=== PATIENT | male | born 1935 | race Caucasian/White ===

== ENCOUNTER → 2024-07-09 11:42 | Outpatient (REF) | payer OTHER, SELFPAY ==
[2024-07-09 12:43] LABS: % Basophils 0.8 % (0-2); % Eosinophils 1.6 % (0-6); % Immature Granulocytes 0.3 % (0-0.5); % Lymphocytes 21.8 % (20.5-51.1); % Monocytes 11.4 % (1.7-9.3); % Neutrophils 64.1 % (42.2-75.2); Absolute Basophils 0.1 10^3/uL (0-0.2); Absolute Eosinophils 0.1 10^3/uL (0-0.7); Absolute Lymphocytes 1.4 10^3/uL (1.2-3.4); Absolute Monocytes 0.7 10^3/uL (0.1-0.6); Absolute Neutrophils 4.1 10^3/uL (1.4-6.5); Hematocrit 44.7 % (39.0-52.0); Hemoglobin 15.2 g/dL (13.0-18.0); Mean Platelet Volume 9.6 fL (7.4-10.4); Nucleated Red Blood Cells % 0 % (-); Platelet Count 228 10^3/uL (130-400); Red Blood Cell Count 4.47 10^6/uL (4.70-6.10); Red Cell Dist. Width 14.6 % (11.5-14.5); White Blood Cell Count 6.4 10^3/uL (4.8-10.8)
[2024-07-09 14:34] LABS: ALT (SGPT) 32 U/L (0-50); AST (SGOT) 96 U/L (17-59); Albumin 3.9 g/dl (3.5-5.0); Alkaline Phosphatase 129 U/L (38-126); Blood Urea Nitrogen 24 mg/dl (9-20); Calcium 9.6 mg/dl (8.4-10.2); Carbon Dioxide 30 mmol/L (22-30); Chloride 100 mmol/L (98-107); Glucose 83 mg/dl (70-99); HDL Cholesterol 82 mg/dl; LDL Cholesterol, Calculated 49 mg/dl; Potassium 3.9 mmol/L (3.5-5.1); Sodium 140 mmol/L (135-145); Total Bilirubin 0.9 mg/dl (0.2-1.3); Total Cholesterol 151 mg/dl (50-199); Total Protein 6.4 g/dl (6.3-8.2); Triglyceride 101 mg/dl (10-149); Very Low Density Lipoprotein 20 mg/dl (0-30); eGFR > 60.00
[2024-07-09 14:38] LABS: Urine Albumin Trace (Neg - Trace); Urine Bilirubin Negative (Negative); Urine Character Clear (Clear); Urine Color Yellow; Urine Glucose Negative (Negative); Urine Ketone Negative (Negative); Urine Leukocyte Negative (Negative); Urine Nitrite Negative (Negative); Urine Occult Blood Negative (Negative); Urine Specific Gravity 1.015 (<1.030); Urine Urobilinogen Negative (Neg - 1+)
== END ==
LOC: REG 11:42
PROVIDERS: ATTENDING PHYSICIAN Internal Medicine
DX: I10 Essential (primary) hypertension (principal); E78.5 Hyperlipidemia, unspecified; C34.90 Malignant neoplasm of unspecified part of unspecified bronchus or lung
CPT/HCPCS: 36415; 80053; 80061; 81003; 85025

== ENCOUNTER 2025-01-08 22:27 | Inpatient (IN) | payer OTHER, SELFPAY ==
[2025-01-08 19:07] VITALS: BP 164/88
--- NOTE | 2025-01-08 19:24 | ED.MUSCINJ ---
HPI-Injury
General
Chief Complaint: Musculo-Skeletal Complaint
Source: patient
Exam Limitations: none
Time Seen by Provider: 01/08/25 19:15
History of Present Illness-Injury
Initial Injury comments:
89-year-old male presents complaining of left hip and thigh pain starting tonight at a restaurant. He went to sit on a chair and missed the chair and fell on his left side. He did not hit his head. He is on a full aspirin daily. No neck or back
pain. No arm pain. He notes significant pain with motion and bearing weight of the left leg. Brought here by EMS
Past History
Past History
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
ED Past Surgical History: None
Social History
Tobacco: Non-smoker
Alcohol: Daily (wine)
Personal:
Living: with family
Employment: Retired
Phy Exam
Physical Exam
Physical Exam:
General: Well-appearing male no acute respiratory distress
HEENT normocephalic atraumatic no scalp abrasion or hematoma
Heart: Regular rate and rhythm
Lungs: Clear no wheeze
Musculoskeletal exam: The patient's leg is slightly shortened and externally rotated. He is tender about the mid thigh as well as the hip. The left knee and ankle are nontender. The spine is nontender
Vascular: Palpable DP pulse left foot
Injury Course
Orders/Labs/Results
Orders:
Orders
01/08/25 19:22
CR Femur - Left Min 2 Vw Urgent
Comment:
Reason For Exam: fall, pain
CR Pelvis - 1 Or 2 Views Urgent
Reason For Exam: fall, pain
01/08/25 19:25
Morphine Sulfate 4 mg IV NOW STA
Ondansetron Injectable [Zofran] 4 mg IV NOW STA
01/08/25 19:35
Complete Blood Count/With Diff Urgent
Comprehensive Metabolic Panel Urgent
PTT Urgent
Prothrombin Time Urgent
01/08/25 20:26
diazePAM [Valium Injection] 2 mg IV NOW STA
Abnormal Lab Results
01/08/25
19:35
WBC 10.9 H 10^3/uL
(4.8-10.8)
MCH 31.4 H pg
(27.0-31.0)
RDW 15.3 H %
(11.5-14.5)
Abs Immat Gran (auto) 0.1 H 10^3/uL
(0-0.05)
Absolute Neuts (auto) 8.0 H 10^3/uL
(1.4-6.5)
Absolute Monos (auto) 0.9 H 10^3/uL
(0.1-0.6)
Lymphocytes % 15.4 L %
(20.5-51.1)
AST 78 H U/L
(17-59)
Alkaline Phosphatase 138 H U/L
(38-126)
01/08/25 19:35
01/08/25 19:35
MDM/Problems Addressed
Differential Diagnosis Includes:
Mechanical fall with left thigh and hip pain. Consider strain versus fracture versus dislocation. No evidence of head strike. He is on a full aspirin but no other anticoagulants. X-rays of the pelvis hip and femur pending
Will treat symptoms of pain.
*Critical Care Note
Total Time (30-74mins, 75-104mins- exclusive of procedures): Not Applicable
Update Note
Update Note:
X-ray demonstrates displaced left subcapital femur fracture. Notified orthopedics and hospitalist. Will admit to hospital for further evaluation.
ED Attending Note
-
Portions of this chart may have been created with voice recognition software.� Occasional wrong word or��sound alike� substitutions may have occurred due to the inherent limitations of voice recognition software.
Discharge Plan
Departure
Patient Disposition: Admit
Date of Disposition: 01/08/25
Time of Disposition: 20:28
Presentation/result/management discussed w/ accepting MD/DO: Hospitalist
Discharge Problem:
Closed subcapital fracture of left femur
Prescriptions:
No Action
gabapentin 100 MG capsule
200 mg PO HS Qty: 20 0RF
folic acid 0.4 MG tablet
0.8 mg PO DAILY
calcium carbonate [Calcium 600] 600 MG tablet
600 mg PO BID
Patient Comments:
cholecalciferol (vitamin D3) 1,000 UNIT capsule
1,000 unit PO BID
sennosides [senna] 1 TABLET tablet
2 tab PO HS Qty: 0 0RF
acetaminophen 325 MG tablet
650 mg PO Q4HPRN PRN (Reason: fever pain) Qty: 0 0RF
polyethylene glycol 3350 17 GRAMS powder in packet
17 grams PO DAILYPRN PRN (Reason: constipation) Qty: 0 0RF
atorvastatin 10 MG tablet
10 mg PO QPM Qty: 30 0RF
clopidogrel 75 MG tablet
75 mg PO DAILY Qty: 30 0RF
allopurinol 100 MG tablet
100 mg PO DAILY Qty: 30 0RF
diphenhydramine HCl [Banophen] 25 MG capsule
25 mg PO HS Qty: 0 0RF
docusate sodium 100 MG capsule
100 mg PO BID Qty: 0 0RF
metoprolol tartrate 25 MG tablet
25 mg PO BID Qty: 60 0RF
trazodone 50 MG tablet
25 mg PO HS Qty: 30 0RF
famotidine 20 MG tablet
20 mg PO HS Qty: 30 0RF
Referrals:
Ricky Herrera MD [Family Provider] -
Interventions
Interventions:
*Risk Screen - Suicide Last Done: 01/08/25 19:07
*General Assessment Last Done: 01/08/25 19:07
*Neglect/Abuse Screening Last Done: 01/08/25 19:07
*ED- Fall Risk Assessment Last Done: 01/08/25 19:07
*ED COVID-19 Vaccine History Last Done: 01/08/25 19:07
ED-Musculoskeletal Assessment Last Done: 01/08/25 19:16
Discharge Date and Time
Print Language: AMHARIC
[2025-01-08] MEDS: ZOFRAN 4 MG IV (19:31)
[2025-01-08] MEDS: MORPHINE SULFATE 4 MG IV (19:31)
[2025-01-08 19:49] LABS: % Basophils 0.7 % (0-2); % Eosinophils 1.7 % (0-6); % Immature Granulocytes 0.5 % (0-0.5); % Lymphocytes 15.4 % (20.5-51.1); % Monocytes 8.4 % (1.7-9.3); % Neutrophils 73.3 % (42.2-75.2); Absolute Basophils 0.1 10^3/uL (0-0.2); Absolute Eosinophils 0.2 10^3/uL (0-0.7); Absolute Immature Granulocytes 0.1 10^3/uL (0-0.05); Absolute Lymphocytes 1.7 10^3/uL (1.2-3.4); Absolute Monocytes 0.9 10^3/uL (0.1-0.6); Hematocrit 44.4 % (39.0-52.0); Hemoglobin 15.3 g/dL (13.0-18.0); Mean Corp Hgb Conc. 34.5 g/dL (33.0-37.0); Mean Corpuscular Hgb 31.4 pg (27.0-31.0); Mean Platelet Volume 9.6 fL (7.4-10.4); Nucleated Red Blood Cells % 0 % (-); Platelet Count 245 10^3/uL (130-400); Red Blood Cell Count 4.88 10^6/uL (4.70-6.10); Red Cell Dist. Width 15.3 % (11.5-14.5); White Blood Cell Count 10.9 10^3/uL (4.8-10.8)
[2025-01-08 20:00] LABS: PT 13.5 Sec (11.4-14.6)
[2025-01-08 20:01] LABS: APTT 28.2 Sec (23.4-35.0)
[2025-01-08 20:10] LABS: ALT (SGPT) 24 U/L (0-50); AST (SGOT) 78 U/L (17-59); Albumin 4.1 g/dl (3.5-5.0); Alkaline Phosphatase 138 U/L (38-126); Blood Urea Nitrogen 19 mg/dl (9-20); Calcium 9.8 mg/dl (8.4-10.2); Carbon Dioxide 29 mmol/L (22-30); Chloride 106 mmol/L (98-107); Estimated Creatinine Clearance 53 ml/min; Glucose 90 mg/dl (70-99); Potassium 4.3 mmol/L (3.5-5.1); Sodium 140 mmol/L (135-145); Total Protein 6.9 g/dl (6.3-8.2); eGFR > 60.00
--- NOTE | 2025-01-08 20:34 | HPS.HSE ---
Family Physician
-
Family Physician: Ricky Herrera
Chief Complaint
-
Fall left hip pain
History of Present Illness
89-year-old male who was out eating at a restaurant when he went to sit down he missed his chair falling on his left side injuring his hip and thigh. He came in the ER a shortened left leg. In the ER was noted to have a left femoral neck fracture.
He is complaining of left hip pain with left thigh spasm. He denies headache, fever, chills, chest pain, palpitations, shortness breath, cough, abdominal pain, nausea, vomiting, diarrhea, urinary symptoms. He states he started to have
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
day. He has past medical history of CVA 7 years ago with left hemiparesis, GERD, HTN, HLD, sleep apnea with BiPAP, gout, Etoh abuse 375 ml daily, mucous membrane pemphigoid mouth.
Medical History
Past Medical History
Past Medical History: Reports Other
Additional Past Medical History:
CVA 7 years ago with left hemiparesis
GERD
HTN
HLD
sleep apnea with BiPAP
gout
Etoh abuse 375 ml daily
Mucous membrane pemphigoid
Past Surgical History: Reports Other
Additional Past Surgical History:
Tonsillectomy
Social History
Tobacco: Non-smoker
Alcohol: Daily (375 ml bottle wine daily )
Drug: None
Personal:
Living: With Family ( Barbra)
Employment: Retired
Family History
Family History: Other (mother cva age 63, mom late 50's unsure , brother unsure)
Allergies / Home Medications
Allergies reflects when Allergies were last updated in [facility].
Home Medications with original date entered in [employer]
Allergy/Medication List:
Allergies
Allergy/AdvReac Type Severity Reaction Status Date / Time
No Known Allergies Allergy Verified 01/08/25 19:01
Home Medications
calcium carbonate (Calcium 600) 600 mg PO DAILY 10/31/13
cholecalciferol (vitamin D3) 25 mcg (1,000 unit) capsule 1,000 unit PO HS 10/31/13
folic acid 400 mcg tablet 0.8 mg PO DAILY 10/31/13
atorvastatin 10 mg tablet 10 mg PO QPM ##30 11/20/13
trazodone 50 mg tablet 25 mg (1/2 x 50 mg) PO HS #30 tabs 11/20/13
allopurinol 100 mg tablet 100 mg PO DAILY PRN gout 01/08/25
clotrimazole 10 mg fannie 10 mg PO DIRECTED 01/08/25
dexamethasone 0.5 mg/5 mL oral elixir 1 mg PO HS 01/08/25
diphenhydramine HCl 25 mg capsule (Banophen) 50 mg PO HS 01/08/25
doxycycline hyclate 100 mg PO DAILY 01/08/25
famotidine 20 mg tablet 20 mg PO HS PRN acid indigestion 01/08/25
Review of Systems
-
History Source: Patient and Family
A 12 point ROS was completed and negative except as noted: Yes
Constitutional: Denies Fever or Chills
EENT: Denies Tearing, Sore Throat or Runny Nose
Respiratory: Denies Cough or Trouble Breathing
Cardiac: Denies Chest Pain, Diaphoresis, Palpitations or Syncope
Abdomen/GI: Denies Abdominal Pain, Nausea, Vomiting, Diarrhea, Constipated, Bloody Stools or Black Stools
: Denies Dysuria, Frequency, Flank Pain, Incontinence, Difficulty Voiding, Urgency or Dark Urine
Musculoskeletal: Reports Joint Pain (left hip pain , lef thigh spasms )
Skin: Denies Itching or Rash
Neurological: Denies Dizzy, Headache or Weakness
Endocrine: Reports No Symptoms
Hematologic/Lymphatic: Reports No Symptoms
Psych: Reports Calm
Physical Exam
Vital Signs
Vital Signs
Temp Pulse Resp BP Pulse Ox
97.8 F 59 17 164/88 98
01/08/25 19:07 01/08/25 19:07 01/08/25 19:07 01/08/25 19:07 01/08/25 19:07
Physical Exam
General: Obese; No Fever, Chills or Slurred Speech
HEENT: NormoCephalic, Anicteric, Moist mucous membranes, PERRLA, Monserrate Conjunctivae, No Ptosis and Neck Nontender
Respiratory: Clear; No Wheezes, Rales or Rhonchi
Cardiac: S1/S2 and Regular Rhythm; No Murmur, Rub or Gallop
Breast: Deferred by me
GI: Soft, Non Tender, Non Distended, Normal Bowel Sounds and No Hepatosplenomegaly
Rectal: Deferred by Provider
Genito-urinary: Deferred by me
Musculoskeletal: No Clubbing, No Cyanosis, No Edema and Other (left hip pain , lef thigh spasms )
Skin: Warm and Dry; No Rash or Jaundice
Neuro: AO x 3 and Other (chronic left side 4/5 from stroke ); No Slurred Speech, Facial Droop or Tremors
Psych: Calm
Laboratory Results
-
01/08/25 19:35
01/08/25 19:35
Laboratory Results
PT 13.5 Sec (11.4-14.6) 01/08/25 19:35
INR 1.00 01/08/25 19:35
APTT 28.2 Sec (23.4-35.0) 01/08/25 19:35
Total Bilirubin 1.0 mg/dl (0.2-1.3) 01/08/25 19:35
AST 78 U/L (17-59) H 01/08/25 19:35
ALT 24 U/L (0-50) 01/08/25 19:35
Alkaline Phosphatase 138 U/L (38-126) H 01/08/25 19:35
Impression/Plan
-
Impression/plan:
Admit to MedSurg
#Mechanical fall with left femoral neck fracture
-N.p.o. after midnight 4 OR tomorrow
-Pain control
-Bowel regimen
-PT/OT/case management consult
#Hx CVA Ischemic 7 years ago left hemiparesis
uses walker
#Etoh abuse
Drink 375 ml wine daily
- cessation advised or to decrease amount to less then 10oz day
MSAS screen with protocol
Iv thiamine , Iv folate
Mucus membrane pemphigoid with mild exacerbation
- Continue clotrimazole troches up to 5 times a day, dexamethasone 1 mg - 10 mL at bedtime, doxycycline 100 mg daily was started on 12/14/2024
#HTN
164/88
Continue metoprolol tartrate 50 mg twice daily
#GERD
- Continue Nexium 40 mg daily or equivalent
#HLD
Continue Lipitor 10 mg at bedtime
#Sleep apnea
-Uses BiPAP pt to use own tmr
#Gout
- Allopurinol 100 mg daily
DVT prophylaxis
SCDs
#Full code
--- NOTE | 2025-01-08 20:44 | W.PN.UPDATE ---
Update Note
Progress Note Update
Patient seen in conjunction with RACQUET MAKER. I agree with the findings and physical. I concur with assessment and plan listed otherwise.
Briefly this is a 89-year-old male with past medical history significant for CVA, hypertension, BPH, hyperlipidemia, ANTIONE, hypertension who presents to the emergency department following a mechanical fall. Patient was trying to sit down while at a
restaurant where he missed the seat and landed on the floor. Developed severe pain and brought to the emergency department.
Was found to have a left hip fracture in the emergency department.
He he arrived with a blood pressure of 104/83 with a pulse of 59 and was satting 98% on room air. CBC was unremarkable with a white count of 10.9. Electrolytes were all within the normal range. PT/INR was normal. He has slight elevation in AST
to 78 and alk phos to 130.
The x-ray of the hip shows a left-sided subcapital displaced femoral fracture. There is shortening of the slightly rotated left leg on examination.
Assessment and plan
Femur fracture -left subcapital femoral fracture, displaced secondary to mechanical fall. Patient is not on any thinners. He is hemodynamically stable and in no distress is mostly due to pain.
- admit to med/surg
- non-weight bearing for now
- pain control and antiemetics
- npo after midnight
- b/s monitoring
- hold DVT PPX pending surgery in am
- surgery consulted and aware, OR tomorrow recommended.
- PTOT
- Case management
AST elevation - Patient aware, says chronically elevated and admitted to etoh intake daily.
- low risk withdrawal protocol
ANTIONE - on BIPAP, does not know home settings.
- can be off bipap tonight
- home device to be brought in am by spouse
Will continue oral statin, plavix, metoprolol and allopurinol
Code Status - Full code
[2025-01-08] MEDS: DILAUDID 0.5 MG IV (21:24)
[2025-01-08] MEDS: FLEXERIL 10 MG PO (21:24)
[2025-01-08 21:28] VITALS: BP 169/85
[2025-01-08 22:00] VITALS: BP 110/99
[2025-01-08 23:01] VITALS: BP 148/79
[2025-01-08 23:29] VITALS: BMI 29.0
[2025-01-08 23:30] VITALS: BP 151/83
[2025-01-08] MEDS: FLEXERIL 5 MG PO (23:48)
[2025-01-08] MEDS: THIAMINE INJECTION 200 MG IV (23:48)
[2025-01-08] MEDS: MYCELEX TROCHE 10 MG PO (23:48)
[2025-01-08] MEDS: ROXICODONE 5 MG PO (23:49)
[2025-01-08] MEDS: DECADRON 1 MG PO (23:49)
[2025-01-08] MEDS: BENADRYL 50 MG PO (23:51)
[2025-01-08] MEDS: VITAMIN D3 (cholecalciferol) 25 MCG PO (23:52)
[2025-01-09] VITALS (9 sets, daily range): BP systolic 126–162; BP diastolic 72–83
[2025-01-09 00:31] LABS: GGTP 31 U/L (15-73); Magnesium 1.9 mg/dl (1.6-2.3); Phosphorus 3.7 mg/dl (2.5-4.5)
[2025-01-09 00:32] LABS: Alcohol None Detected
[2025-01-09 00:36] LABS: B-Hydroxybutyrate 0.55 mmol/L (0.02-0.27)
[2025-01-09 00:37] LABS: INR 1.09; PT 14.4 Sec (11.4-14.6)
--- NOTE | 2025-01-09 04:42 | PTCARENOTE ---
pt npo first chg wipes completed- medicated with prn pain meds
--- NOTE | 2025-01-09 04:56 | CON.ORTHO ---
Consultation
-
Date/Time Consultation Requested: January 10
Date/Time Consultation Performed: January 10
Requesting Provider: ESTER Fraser
Performing Provider: Promise moreno Ghulam
Reason for Consultation: Left hip fracture
Consultation - Orthopedics
History
History of Present Illness:
89-year-old male with PMH of CVA 7 years ago with left hemiparesis (wears an AFO on this side), GERD, HTN, HLD, sleep apnea with BiPAP, gout, and Etoh abuse. He was out to eat at a restaurant when he went to sit down and missed his chair, falling on
his left side. Denies prodrome. No headstrike or LOC. He came in the ER with an inability to ambulate and a shortened left leg. In the ER, on xrays, he was noted to have a left femoral neck fracture. He was c/o let hip and thigh pain. Denies any
previous issues with the left hip prior to the fall. We have been requested in consultation with regards to his left hip fracture. He takes a daily 325mg ASA.
Past Medical History:
CVA 7 years ago with left hemiparesis (left sided AFO)
GERD
HTN
HLD
sleep apnea with BiPAP
gout
Etoh abuse 375 ml daily
Mucous membrane pemphigoid
Past Surgical History:
Tonsillectomy
Social History:
Tobacco: Non-smoker
Alcohol: Daily (375 ml bottle wine daily )
Drug: None
Personal:
Living: With Family ( Barbra)
Employment: Retired
Family History:
Mother cva age 63, mom late 50's unsure , brother unsure
Allergies / Home Medications
Allergy/AdvReac Type Severity Reaction Status Date / Time
No Known Allergies Allergy Verified 01/08/25 19:01
�Medication �Instructions �Recorded
calcium carbonate (Calcium 600) 600 mg PO DAILY 10/31/13
cholecalciferol (vitamin D3) 25 1,000 unit PO HS 10/31/13
mcg (1,000 unit) capsule
folic acid 400 mcg tablet 0.8 mg PO DAILY 10/31/13
atorvastatin 10 mg tablet 10 mg PO QPM ##30 11/20/13
trazodone 50 mg tablet 25 mg (1/2 x 50 mg) PO HS #30 tabs 11/20/13
allopurinol 100 mg tablet 100 mg PO DAILY PRN gout 01/08/25
clotrimazole 10 mg fannie 10 mg PO DIRECTED 01/08/25
dexamethasone 0.5 mg/5 mL oral 1 mg PO HS 01/08/25
elixir
diphenhydramine HCl 25 mg capsule 50 mg PO HS 01/08/25
(Banophen)
doxycycline hyclate 100 mg PO DAILY 01/08/25
famotidine 20 mg tablet 20 mg PO HS PRN acid indigestion 01/08/25
Vital Signs / Lab Results
Temp Pulse Resp BP Pulse Ox
97.8 F 63 17 151/83 91
01/08/25 23:30 01/08/25 23:30 01/08/25 23:30 01/08/25 23:30 01/08/25 23:30
Assessment / Plan
PE: Bedrest. Afeb. LLE skin intact. LLE short and ER. AFO used on LLE, but currently not on. Generalized pain left hip to palpation. + logroll LLE. Deferred ROM due to known fracture. Left knee nontender. Calf supple, nontender. DNVI LLE
Xrays: LEFT femoral neck fracture
Impression: ERIK
Plan: At length discussion with the patient bedside yields his understanding to the nature of his left hip fracture and the proposed treatment recommendations. Nonoperative and operative management were discussed, including the RBAs of each form of
management. After discussing all the risks with surgical fixation he has elected to proceed. Tentative plan for surgery will be this morning under the direction of Dr. Parmar by way of left hip hemiarthroplasty. We briefly discussed the postop and
rehab course, and will appreciate CM assistance with disposition. PT/OT will be crucial, as he does use an AFO LLE baseline. Surgical and blood consents have been signed by the patient and placed to his chart. Operative site has been marked as the
left hip. T&S requested. Patient is, and will remain NPO. Will discuss with attending hospitalist, but patient appears optimized for surgery. ABX and irrigation products OCTOR. Will proceed to the OR shortly.
[2025-01-09] MEDS: ROXICODONE 5 MG PO (05:02)
[2025-01-09] MEDS: FLEXERIL 5 MG PO ×2 (05:03→23:59)
[2025-01-09 05:18] LABS: Urine Albumin Negative (Neg - Trace); Urine Bilirubin Negative (Negative); Urine Character Clear (Clear); Urine Color Yellow; Urine Glucose Negative (Negative); Urine Ketone Negative (Negative); Urine Leukocyte Negative (Negative); Urine Nitrite Negative (Negative); Urine Occult Blood Negative (Negative); Urine Specific Gravity 1.025 (<1.030); Urine Urobilinogen Negative (Neg - 1+)
[2025-01-09 05:27] LABS: Amphetamines Negative (Negative); Barbiturates Negative (Negative); Benzodiazepines Negative (Negative); Buprenorphine Negative (Negative); Cocaine Negative (Negative); Marijuana Negative (Negative); Methadone Negative (Negative); Methamphetamines Negative (Negative); Opiates Positive (Negative); Phencyclidine Negative (Negative); Tricyclic Antidepressants Negative (Negative)
[2025-01-09 05:44] LABS: Fentanyl, Urine Negative (Negative)
[2025-01-09 06:15] LABS: % Basophils 0.7 % (0-2); % Eosinophils 1.4 % (0-6); % Immature Granulocytes 0.5 % (0-0.5); % Lymphocytes 9.4 % (20.5-51.1); % Monocytes 8.9 % (1.7-9.3); % Neutrophils 79.1 % (42.2-75.2); Absolute Basophils 0.1 10^3/uL (0-0.2); Absolute Eosinophils 0.1 10^3/uL (0-0.7); Absolute Lymphocytes 0.8 10^3/uL (1.2-3.4); Absolute Monocytes 0.8 10^3/uL (0.1-0.6); Hematocrit 41.4 % (39.0-52.0); Mean Corp Hgb Conc. 33.8 g/dL (33.0-37.0); Mean Corpuscular Volume 91.8 fL (80.0-94.0); Mean Platelet Volume 9.4 fL (7.4-10.4); Nucleated Red Blood Cells % 0 % (-); Platelet Count 210 10^3/uL (130-400); Red Blood Cell Count 4.51 10^6/uL (4.70-6.10); Red Cell Dist. Width 15.2 % (11.5-14.5); White Blood Cell Count 8.9 10^3/uL (4.8-10.8)
[2025-01-09 06:38] LABS: ALT (SGPT) 21 U/L (0-50); AST (SGOT) 66 U/L (17-59); Albumin 3.6 g/dl (3.5-5.0); Alkaline Phosphatase 123 U/L (38-126); Blood Urea Nitrogen 18 mg/dl (9-20); Calcium 9.2 mg/dl (8.4-10.2); Carbon Dioxide 28 mmol/L (22-30); Chloride 105 mmol/L (98-107); Estimated Creatinine Clearance 53 ml/min; Glucose 145 mg/dl (70-99); Sodium 138 mmol/L (135-145); Total Bilirubin 1.4 mg/dl (0.2-1.3); Total Protein 6.1 g/dl (6.3-8.2); eGFR > 60.00
[2025-01-09] MEDS: OSCAL CAL 500 500 MG PO (08:26)
[2025-01-09] MEDS: VIBRAMYCIN 100 MG PO (08:26)
[2025-01-09] MEDS: THIAMINE INJECTION 200 MG IV ×3 (08:27→23:52)
[2025-01-09] MEDS: MYCELEX TROCHE 10 MG PO ×4 (08:27→21:32)
[2025-01-09] MEDS: FOLVITE 1 MG PO (08:27)
[2025-01-09] MEDS: DILAUDID 0.5 MG IV (08:50)
--- NOTE | 2025-01-09 11:26 | PTCARENOTE ---
Telephone report given to [employer] APPRAISERARELY Gimenez @11:15; transport arrived and transported patient @11:26.
[2025-01-09] MEDS: MYCELEX TROCHE PO (11:30)
--- NOTE | 2025-01-09 13:26 | W.PN.HOSP.TC ---
Today's Communication/Plan
-
OR
Assessment / Plan
Assessment / Plan
89-year-old male with fall and left hip pain he was in a restaurant and when he sat down he missed the chair and fell on the left side injuring the hip and thigh.
Patient was seen earlier today. Late documentation. was at bedside
CVS: S1-S2 normal
Chest: CTA B/L
Abdomen: Soft, NT / Bowel sounds present
Extremities: No edema, normal pulses
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
1 skin lesion with pemphigoid in the back of the scalp. I could not find any oral lesions now.
Denies any chest pain or shortness of breath. Able to ambulate with assistance device.
#Mechanical fall with traumatic left femoral neck fracture
N.p.o. 4 OR
Pain management
# Slightly elevated AST secondary to alcohol
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
Unclear why he is not on antiplatelets
# Mucous membrane pemphigoid continue clotrimazole atrocious, Dexamethasone 1 mg/5 mL swish and spit TID, ( Pt not compliant per ) and doxycycline 100 mg daily
# Hyperlipidemia-continue statin
# Gout-continue allopurinol
# Sleep apnea-continue BiPAP
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
Need to cut back
MSAS protocol and thiamine
# GERD- Pepcid
# DVT prophylaxis-SCDs for now and per orthopedics after surgery
# Full code
Discussed with at bedside
Discussed with nursing
Part of this note was created using voice recognition system. Occasional wrong word or��sound alike� substitutions may have inadvertently occurred due to the inherent limitations of voice recognition software. If noted kindly bring it to my
attention for correction.
Anticipated Discharge: 24 - 48 hours
Subjective/Interval History
-
Date of Service: January 09, 2025
Objective Data
-
Labs:
Laboratory Results
01/09/25
06:03
WBC 8.9
Hgb 14.0
Hct 41.4
Plt Count 210
Sodium 138
Potassium 4.0
Chloride 105
Carbon Dioxide 28
BUN 18
Creatinine 0.9
Glucose 145 H
Calcium 9.2
Total Bilirubin 1.4 H
AST 66 H
ALT 21
Alkaline Phosphatase 123
Vital Signs:
Vital Signs
Temp Pulse Resp BP Pulse Ox
98.0 F 73 18 133/74 92
01/09/25 07:20 01/09/25 07:20 01/09/25 07:20 01/09/25 07:20 01/09/25 07:20
I&O
01/08/25 01/09/25 01/10/25
06:59 06:59 06:59
Intake Total 120 / 120
Output Total 450 / 450 20 / 20
Balance -330 / -330 -20 / -20
--- NOTE | 2025-01-09 13:35 | CM ---
Patient in bed sleeping. Initial assessment completed with who lives with her in a 1 story home with 1 step to enter. 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 Hx. CVA. L sided
weakness. Patient has a rollator, W/CH and 3 RW in the home. Uses a Bipap at HS. No in-home services. He does not drive. Does have a HC-POA. Was in the [employer]. PCP is [facility] or [facility] in [place]. PCP is Dr. Gilberto Herrera. Discharge POC:
Anticipate SNF. preference is [facility] or [facility] if acute is recommended. [facility] is preference. Referral not forwarded as yet.
[2025-01-09] MEDS: NORMOSOL-R/PLASMALYTE-A 1000 IV (15:29)
[2025-01-09] MEDS: DECADRON 1 MG PO ×2 (15:29→21:32)
[2025-01-09] MEDS: ASPIRIN 325 MG PO (17:37)
[2025-01-09] MEDS: LIPITOR 10 MG PO (17:37)
[2025-01-09] MEDS: ANCEF 5 IV (20:33)
[2025-01-09] MEDS: COLACE 100 MG PO (20:33)
--- NOTE | 2025-01-09 21:19 | RESPNOTE ---
pt declined use of his own cpap machine stating that he does without it from time to time. Offered ours since his was not here currently and he declined again.
[2025-01-09] MEDS: VITAMIN D3 (cholecalciferol) 25 MCG PO (21:32)
[2025-01-09] MEDS: BENADRYL 50 MG PO (21:32)
[2025-01-10 03:00] VITALS: BP 132/78
[2025-01-10 04:11] LABS: % Basophils 0.1 % (0-2); % Immature Granulocytes 0.4 % (0-0.5); % Lymphocytes 5.2 % (20.5-51.1); % Monocytes 5.6 % (1.7-9.3); % Neutrophils 88.7 % (42.2-75.2); Absolute Immature Granulocytes 0.1 10^3/uL (0-0.05); Absolute Lymphocytes 0.7 10^3/uL (1.2-3.4); Absolute Monocytes 0.8 10^3/uL (0.1-0.6); Absolute Neutrophils 11.8 10^3/uL (1.4-6.5); Hematocrit 42.1 % (39.0-52.0); Hemoglobin 14.5 g/dL (13.0-18.0); Mean Corp Hgb Conc. 34.4 g/dL (33.0-37.0); Mean Corpuscular Hgb 31.7 pg (27.0-31.0); Mean Corpuscular Volume 91.9 fL (80.0-94.0); Mean Platelet Volume 9.5 fL (7.4-10.4); Nucleated Red Blood Cells % 0 % (-); Platelet Count 212 10^3/uL (130-400); Red Blood Cell Count 4.58 10^6/uL (4.70-6.10); Red Cell Dist. Width 15.3 % (11.5-14.5); White Blood Cell Count 13.4 10^3/uL (4.8-10.8)
[2025-01-10] MEDS: ANCEF 5 IV (04:26)
[2025-01-10] MEDS: NORMOSOL-R/PLASMALYTE-A 1000 IV (04:29)
[2025-01-10 04:36] LABS: ALT (SGPT) 19 U/L (0-50); AST (SGOT) 82 U/L (17-59); Albumin 3.3 g/dl (3.5-5.0); Alkaline Phosphatase 95 U/L (38-126); Blood Urea Nitrogen 20 mg/dl (9-20); Calcium 9.1 mg/dl (8.4-10.2); Carbon Dioxide 26 mmol/L (22-30); Chloride 104 mmol/L (98-107); Estimated Creatinine Clearance 53 ml/min; Glucose 172 mg/dl (70-99); Magnesium 2.1 mg/dl (1.6-2.3); Potassium 4.6 mmol/L (3.5-5.1); Sodium 136 mmol/L (135-145); eGFR > 60.00
[2025-01-10 07:10] VITALS: BP 137/72
[2025-01-10] MEDS: OSCAL CAL 500 500 MG PO (08:54)
[2025-01-10] MEDS: VIBRAMYCIN 100 MG PO (08:54)
[2025-01-10] MEDS: ASPIRIN 325 MG PO (08:54)
[2025-01-10] MEDS: FOLVITE 1 MG PO (08:54)
[2025-01-10] MEDS: MYCELEX TROCHE 10 MG PO ×5 (08:54→21:15)
[2025-01-10] MEDS: THIAMINE INJECTION 200 MG IV ×3 (08:54→23:14)
[2025-01-10] MEDS: COLACE 100 MG PO ×2 (08:54→20:16)
[2025-01-10] MEDS: DECADRON 1 MG PO ×3 (08:55→21:16)
--- NOTE | 2025-01-10 09:27 | W.PN.ORTHO ---
Today's Communication / Plan
-
Continue Tx per the primary team, which is much appreciated
Dispo likely SNF, appreciate CM
Continue WBAT B/L LEs with AFO on LLE
PT/OT, THPs x 6 weeks
ASA 325mg daily x 4 weeks for DVT ppx
Dressing to remain today, ? change tomorrow, or per RN
Pain control, ice to hip
Camila out 2 weeks post-op (office or SNF)
Will follow
Assessment
.
Distal Motor Intact: Yes
Dressing:
Clean, dry and intact. Strikethrough contained. Will leave until tomorrow
Assessment:
POD#1 Left hip Nikko
Overall doing/feeling well
Calf soft, nontender
Plan
.
Surgery / Date: Left Hip Nikko/January 10 (Ghulam)
DVT Prophylaxis: Aspirin
Activity:
Out of bed. WBAT LLE with AFO
PT/OT, THPs x 6 weeks
Discharge Plan: SNF and Other
Discharge Information:
Appreciate CM
Subjective
.
.:
Patient resting comfortably enjoying breakfast. Little to no pain left hip
Vital Signs and Labs
.
Vital Signs and Labs:
Lab Results
01/10/25 03:38
01/10/25 03:38
Temp Pulse Resp BP Pulse Ox
98.0 F 85 18 137/72 93
01/10/25 07:10 01/10/25 07:10 01/10/25 07:10 01/10/25 07:10 01/10/25 07:10
PT 14.4 Sec (11.4-14.6) 01/09/25 00:07
INR 1.09 01/09/25 00:07
[2025-01-10] MEDS: SENOKOT 8.6 MG PO ×2 (10:19→20:16)
[2025-01-10] MEDS: PROTONIX 40 MG PO (10:19)
[2025-01-10] MEDS: FLOMAX 0.4 MG PO ×2 (10:19→21:15)
[2025-01-10 12:06] VITALS: BP 120/85; BP 145/85; PULSE 93; O2SAT 94
--- NOTE | 2025-01-10 12:20 | W.PN.HOSP.TC ---
Today's Communication/Plan
-
Post op care
WBAT
SNF placement
Assessment / Plan
Assessment / Plan
89-year-old male with fall and left hip pain he was in a restaurant and when he sat down he missed the chair and fell on the left side injuring the hip and thigh.
CVS: S1-S2 normal
Chest: CTA B/L
Abdomen: Soft, NT / Bowel sounds present
Extremities: Left hip site with Aquacel with bleeding
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
1 skin lesion with pemphigoid in the back of the scalp and neck left .
#Mechanical fall with traumatic left femoral neck fracture
Status post left hip hemiarthroplasty on 01/09/[address] Parmar
Weight bear as tolerated
PT OT
# Slightly elevated AST secondary to alcohol
# Leukocytosis-likely reactive
# Hyperglycemia-check hemoglobin A1c
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
Unclear why he is not on antiplatelets as outpatient. Currently on aspirin. Should be on 81 mg of aspirin once he completes the DVT prophylaxis dose
# Mucous membrane pemphigoid continue clotrimazole atrocious, Dexamethasone 1 mg/5 mL swish and spit TID ( Home dose) , ( Pt not compliant per ) and doxycycline 100 mg daily
# Hyperlipidemia-continue statin
# Gout-continue allopurinol
# Sleep apnea-continue BiPAP
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
Need to cut back
MSAS protocol and thiamine
# GERD- Pepcid, patient states that he also takes Prilosec as outpatient ordered
# DVT prophylaxis-SCDs, Aspirin
# Full code
Discussed with nursing at bedside
Part of this note was created using voice recognition system. Occasional wrong word or��sound alike� substitutions may have inadvertently occurred due to the inherent limitations of voice recognition software. If noted kindly bring it to my
attention for correction.
Anticipated Discharge: 24 - 48 hours
Subjective/Interval History
-
Date of Service: January 10, 2025
Objective Data
-
Labs:
Laboratory Results
01/10/25
03:38
WBC 13.4 H
Hgb 14.5
Hct 42.1
Plt Count 212
Sodium 136
Potassium 4.6
Chloride 104
Carbon Dioxide 26
BUN 20
Creatinine 0.9
Glucose 172 H
Calcium 9.1
Total Bilirubin 1.0
AST 82 H
ALT 19
Alkaline Phosphatase 95
Vital Signs:
Vital Signs
Temp Pulse Resp BP Pulse Ox
98.0 F 85 18 137/72 93
01/10/25 07:10 01/10/25 07:10 01/10/25 07:10 01/10/25 07:10 01/10/25 08:52
I&O
01/09/25 01/10/25 01/11/25
06:59 06:59 06:59
Intake Total 120 / 120 2295 / 2295 240 / 240
Output Total 450 / 450 1650 / 1650 200 / 200
Balance -330 / -330 645 / 645 40 / 40
[2025-01-10 12:25] LABS: Glycohemoglobin (HgbA1c) 5.8 % (4.0-5.6)
[2025-01-10 15:10] VITALS: BP 140/82
[2025-01-10 15:15] VITALS: BP 146/79; PULSE 88; O2SAT 100
[2025-01-10] MEDS: NORMOSOL-R/PLASMALYTE-A IV ×2 (15:33→17:16)
[2025-01-10] MEDS: FLUSH (NSS) 2 FLUSH IV (16:19)
[2025-01-10] MEDS: LIPITOR 10 MG PO (17:17)
[2025-01-10] MEDS: MAALOX 30 ML PO (20:16)
--- NOTE | 2025-01-10 20:48 | PTCARENOTE ---
pt reporting the Protonix did not provide relief from his heartburn, asking for Nexium, informed that she can bring in and give to nursing staff first for pharmacy to check for interactions. agreed to instructions. Pt given prn Maalox and
HOB raised for comfort.
[2025-01-10] MEDS: PEPCID 20 MG PO (21:15)
[2025-01-10] MEDS: BENADRYL 50 MG PO (21:15)
[2025-01-10] MEDS: VITAMIN D3 (cholecalciferol) 25 MCG PO (21:16)
[2025-01-10 23:41] VITALS: BP 110/78
[2025-01-11 06:14] LABS: % Basophils 0.1 % (0-2); % Eosinophils 0.3 % (0-6); % Immature Granulocytes 0.9 % (0-0.5); % Lymphocytes 9.9 % (20.5-51.1); % Monocytes 8.9 % (1.7-9.3); % Neutrophils 79.9 % (42.2-75.2); Absolute Immature Granulocytes 0.1 10^3/uL (0-0.05); Absolute Monocytes 0.9 10^3/uL (0.1-0.6); Absolute Neutrophils 8.2 10^3/uL (1.4-6.5); Hematocrit 33.5 % (39.0-52.0); Hemoglobin 11.6 g/dL (13.0-18.0); Mean Corp Hgb Conc. 34.6 g/dL (33.0-37.0); Mean Corpuscular Hgb 31.3 pg (27.0-31.0); Mean Corpuscular Volume 90.3 fL (80.0-94.0); Mean Platelet Volume 9.7 fL (7.4-10.4); Nucleated Red Blood Cells % 0 % (-); Platelet Count 181 10^3/uL (130-400); Red Blood Cell Count 3.71 10^6/uL (4.70-6.10); Red Cell Dist. Width 15.3 % (11.5-14.5); White Blood Cell Count 10.3 10^3/uL (4.8-10.8)
[2025-01-11 06:38] LABS: ALT (SGPT) 12 U/L (0-50); AST (SGOT) 68 U/L (17-59); Albumin 2.7 g/dl (3.5-5.0); Alkaline Phosphatase 90 U/L (38-126); Blood Urea Nitrogen 22 mg/dl (9-20); Calcium 8.6 mg/dl (8.4-10.2); Carbon Dioxide 28 mmol/L (22-30); Chloride 107 mmol/L (98-107); Estimated Creatinine Clearance 53 ml/min; Glucose 126 mg/dl (70-99); Potassium 3.7 mmol/L (3.5-5.1); Sodium 138 mmol/L (135-145); Total Bilirubin 0.8 mg/dl (0.2-1.3); Total Protein 4.9 g/dl (6.3-8.2); eGFR > 60.00
--- NOTE | 2025-01-11 07:32 | W.PN.ORTHO ---
Today's Communication / Plan
-
Continue Tx per the primary team, which is much appreciated
Dispo likely SNF, appreciate CM
Continue WBAT B/L LEs with AFO on LLE
PT/OT, THPs x 6 weeks
ASA 325mg daily x 4 weeks for DVT ppx
Dressing changed yesterday
Pain control, ice to hip
Camila out 2 weeks post-op (office or SNF)
Orthopaedics to sign off for now. Please reengage with any pertinent questions related to his care
Assessment
.
Distal Motor Intact: Yes
Dressing:
Clean, dry and intact. Mild strikethrough contained (dressing changed yesterday)
Assessment:
POD#2 Left hip hemiarthroplasty
Overall doing/feeling well
Calf soft, nontender
Plan
.
Surgery / Date: Left Hip Nikko/January 10 (Ghulam)
DVT Prophylaxis: Aspirin
Activity:
Out of bed. WBAT B/L LEs on walker
PT/OT, THPs x 6 weeks
Discharge Plan: SNF and Other
Discharge Information:
Appreciate CM
Subjective
.
.:
Patient resting comfortably this AM. Awaiting breakfast
Vital Signs and Labs
.
Vital Signs and Labs:
Lab Results
01/11/25 05:26
01/11/25 05:26
Temp Pulse Resp BP Pulse Ox
98.3 F 101 16 110/78 92
01/10/25 23:41 01/10/25 23:41 01/10/25 23:41 01/10/25 23:41 01/10/25 23:41
PT 14.4 Sec (11.4-14.6) 01/09/25 00:07
INR 1.09 01/09/25 00:07
[2025-01-11 07:38] VITALS: BP 132/72
[2025-01-11] MEDS: VIBRAMYCIN 100 MG PO (08:22)
[2025-01-11] MEDS: SENOKOT 8.6 MG PO ×2 (08:23→20:06)
[2025-01-11] MEDS: COLACE 100 MG PO ×2 (08:23→20:06)
[2025-01-11] MEDS: ASPIRIN 325 MG PO (08:23)
[2025-01-11] MEDS: OSCAL CAL 500 500 MG PO (08:23)
[2025-01-11] MEDS: FOLVITE 1 MG PO (08:23)
[2025-01-11] MEDS: THIAMINE INJECTION 200 MG IV ×2 (08:23→15:50)
[2025-01-11] MEDS: PROTONIX 40 MG PO (08:23)
[2025-01-11] MEDS: MYCELEX TROCHE 10 MG PO ×5 (08:23→21:34)
[2025-01-11] MEDS: DECADRON PO ×2 (08:23→09:51)
[2025-01-11] MEDS: MIRALAX 17 GRAMS PO (08:24)
--- NOTE | 2025-01-11 08:29 | W.PN.HOSP.TC ---
Today's Communication/Plan
-
consult Physiatry
Assessment / Plan
Assessment / Plan
89-year-old male with fall and left hip pain he was in a restaurant and when he sat down he missed the chair and fell on the left side injuring the hip and thigh.
#Mechanical fall with traumatic left femoral neck fracture
Status post left hip hemiarthroplasty on 01/09/[address] Parmar
Weight bear as tolerated
PT OT
Will consult Physiatry, ?[facility] candidate. PT recommends acute rehab
# Slightly elevated AST probably secondary to alcohol
# Leukocytosis-likely reactive
Better
# Hyperglycemia-hemoglobin A1c 5.8%
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
Unclear why he is not on antiplatelets as outpatient. Currently on aspirin. Should be on 81 mg of aspirin once he completes the DVT prophylaxis dose
# Mucous membrane pemphigoid continue clotrimazole atrocious, Dexamethasone 1 mg/5 mL swish and spit TID ( Home dose) , ( Pt not compliant per ) and doxycycline 100 mg daily
# Hyperlipidemia-continue statin
# Gout-continue allopurinol
# Sleep apnea-continue BiPAP
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
Need to cut back
MSAS protocol and thiamine
Has not demonstrated evidence of withdrawal
# GERD- Pepcid, patient states that he also takes Prilosec as outpatient ordered
# DVT prophylaxis-SCDs, Aspirin
# Full code
Discussed with nursing at bedside
Anticipated Discharge: 24 - 48 hours
Subjective/Interval History
-
Date of Service: January 11, 2025
Awake, alert
Objective Data
-
Labs:
Laboratory Results
01/11/25
05:26
WBC 10.3
Hgb 11.6 L
Hct 33.5 L
Plt Count 181
Sodium 138
Potassium 3.7
Chloride 107
Carbon Dioxide 28
BUN 22 H
Creatinine 0.9
Glucose 126 H
Calcium 8.6
Total Bilirubin 0.8
AST 68 H
ALT 12
Alkaline Phosphatase 90
Vital Signs:
Vital Signs
Temp Pulse Resp BP Pulse Ox
98.6 F 89 16 132/72 91
01/11/25 07:38 01/11/25 07:38 01/11/25 07:38 01/11/25 07:38 01/11/25 07:38
I&O
01/10/25 01/11/25 01/12/25
06:59 06:59 06:59
Intake Total 2295 / 2295 700 / 700
Output Total 1650 / 1650 1545 / 1545
Balance 645 / 645 -845 / -845
Review of Systems
-
History Source: Patient and Coordinated Provider (discussed with ARELY Arriaga)
Constitutional: Denies Fever
EENT: Reports No Symptoms Reported
Respiratory: Reports No Symptoms
Cardiac: Reports No Symptoms
Abdomen/GI: Reports No Symptoms
Musculoskeletal: Reports Joint Pain
Physical Exam
-
General: Well Developed, Well Nourished and No Apparent Distress
HEENT: Normocephalic and Atraumatic
Respiratory: Clear to Auscultation; Negative Wheezes, Rales or Rhonchi
Cardiac: Regular Rhythm and S1/S2
GI: Soft, Nontender, Nondistended and Normal Bowel Sounds
Musculoskeletal: No Clubbing, No Cyanosis, No Edema and Other (post op left hip)
Skin: Warm and Dry
Neuro: Awake, Alert and Oriented; Negative No Motor Deficits (left hemiparesis post CVA, gait not tested)
[2025-01-11 12:25] VITALS: BP 124/83; PULSE 108
[2025-01-11 12:28] VITALS: BP 124/83; PULSE 108; O2SAT 95
[2025-01-11] MEDS: NON-FORMULARY ITEM 40 MG PO (12:40)
--- NOTE | 2025-01-11 12:40 | CM ---
Addendum entered by LINSEY Burk 01/11/25 16:09:
updated on plan.
Original Note:
Spoke to Rn and patient. Patient agreed to referral to [facility] at for acute rehab. Referral sent in [facility]. [employer] is insurer.
[2025-01-11 15:00] VITALS: BP 128/75
[2025-01-11] MEDS: DECADRON 1 MG PO ×2 (15:50→21:34)
[2025-01-11] MEDS: FLEXERIL 5 MG PO ×2 (16:41→23:14)
[2025-01-11] MEDS: LIPITOR 10 MG PO (18:14)
--- NOTE | 2025-01-11 18:51 | RESPNOTE ---
Patient refused the hospital CPAP and will not be bringing his own in.
[2025-01-11] MEDS: VITAMIN D3 (cholecalciferol) 25 MCG PO (20:06)
[2025-01-11] MEDS: FLOMAX 0.4 MG PO (21:34)
[2025-01-11] MEDS: BENADRYL 50 MG PO (21:34)
--- NOTE | 2025-01-11 21:57 | PTCARENOTE ---
Pt reported that he told his not to bring in Bipap because he does not want to use it while he is in the hospital. RN educated pt on need for use of Bipap w hx of ANTIONE. Pt verbalized understanding but stated he does not need it. O2 sat was 96%
on RA. Assessment ongoing.
[2025-01-11 23:01] VITALS: BP 151/82
[2025-01-12 07:19] LABS: % Basophils 0.5 % (0-2); % Eosinophils 1.4 % (0-6); % Immature Granulocytes 0.5 % (0-0.5); % Lymphocytes 10.9 % (20.5-51.1); % Monocytes 10.7 % (1.7-9.3); Absolute Eosinophils 0.1 10^3/uL (0-0.7); Absolute Lymphocytes 0.9 10^3/uL (1.2-3.4); Absolute Monocytes 0.9 10^3/uL (0.1-0.6); Absolute Neutrophils 6.6 10^3/uL (1.4-6.5); Hematocrit 33.6 % (39.0-52.0); Hemoglobin 11.6 g/dL (13.0-18.0); Mean Corp Hgb Conc. 34.5 g/dL (33.0-37.0); Mean Corpuscular Hgb 31.4 pg (27.0-31.0); Mean Corpuscular Volume 90.8 fL (80.0-94.0); Mean Platelet Volume 9.6 fL (7.4-10.4); Nucleated Red Blood Cells % 0 % (-); Platelet Count 192 10^3/uL (130-400); Red Cell Dist. Width 15.1 % (11.5-14.5); White Blood Cell Count 8.6 10^3/uL (4.8-10.8)
[2025-01-12 07:23] VITALS: BP 138/75
[2025-01-12 08:29] LABS: ALT (SGPT) 18 U/L (0-50); AST (SGOT) 76 U/L (17-59); Albumin 2.7 g/dl (3.5-5.0); Alkaline Phosphatase 86 U/L (38-126); Blood Urea Nitrogen 21 mg/dl (9-20); Calcium 8.7 mg/dl (8.4-10.2); Carbon Dioxide 28 mmol/L (22-30); Chloride 108 mmol/L (98-107); Estimated Creatinine Clearance 53 ml/min; Glucose 123 mg/dl (70-99); Potassium 3.7 mmol/L (3.5-5.1); Sodium 139 mmol/L (135-145); Total Bilirubin 0.9 mg/dl (0.2-1.3); eGFR > 60.00
[2025-01-12] MEDS: ASPIRIN 325 MG PO (08:37)
[2025-01-12] MEDS: OSCAL CAL 500 500 MG PO (08:37)
[2025-01-12] MEDS: FOLVITE 1 MG PO (08:37)
[2025-01-12] MEDS: COLACE 100 MG PO ×2 (08:37→20:56)
[2025-01-12] MEDS: MYCELEX TROCHE 10 MG PO ×5 (08:37→21:03)
[2025-01-12] MEDS: VIBRAMYCIN 100 MG PO (08:37)
[2025-01-12] MEDS: VITAMIN B1 100 MG PO ×2 (08:37→20:56)
[2025-01-12] MEDS: SENOKOT 8.6 MG PO (08:37)
[2025-01-12] MEDS: DECADRON 1 MG PO ×3 (08:38→21:03)
[2025-01-12] MEDS: NON-FORMULARY ITEM 40 MG PO (08:38)
[2025-01-12] MEDS: MIRALAX 17 GRAMS PO (08:38)
[2025-01-12] MEDS: FLEXERIL 5 MG PO (08:52)
[2025-01-12 09:51] VITALS: BP 144/74; BP 157/89; PULSE 86; O2SAT 94
[2025-01-12 09:54] VITALS: BP 144/74; BP 157/89; PULSE 86; O2SAT 94
--- NOTE | 2025-01-12 11:17 | W.PN.HOSP.TC ---
Today's Communication/Plan
-
await input from Physiatry as to whether pt appropriate for [facility]
Assessment / Plan
Assessment / Plan
89-year-old male with fall and left hip pain he was in a restaurant and when he sat down he missed the chair and fell on the left side injuring the hip and thigh.
#Mechanical fall with traumatic left femoral neck fracture
Status post left hip hemiarthroplasty on 01/09/[address] Parmar
Weight bear as tolerated
PT OT
Will consult Physiatry, await input as to whether ?[facility]tson candidate. PT recommends acute rehab
# Slightly elevated AST probably secondary to alcohol
# Leukocytosis-likely reactive
Better
# Hyperglycemia-hemoglobin A1c 5.8%
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
Unclear why he is not on antiplatelets as outpatient. Currently on aspirin. Should be on 81 mg of aspirin once he completes the DVT prophylaxis dose
# Mucous membrane pemphigoid continue clotrimazole atrocious, Dexamethasone 1 mg/5 mL swish and spit TID ( Home dose) , ( Pt not compliant per ) and doxycycline 100 mg daily
# Hyperlipidemia-continue statin
# Gout-continue allopurinol
# Sleep apnea-continue BiPAP
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
Need to cut back
MSAS protocol and thiamine
Has not demonstrated evidence of withdrawal
# GERD- Pepcid, patient states that he also takes Nexium as outpatient, order placed
# DVT prophylaxis-SCDs, Aspirin
# Full code
Discussed with nursing at bedside
Anticipated Discharge: 24 - 48 hours
Subjective/Interval History
-
Date of Service: January 12, 2025
Pain not severe at rest
Objective Data
-
Labs:
Laboratory Results
01/12/25
06:40
WBC 8.6
Hgb 11.6 L
Hct 33.6 L
Plt Count 192
Sodium 139
Potassium 3.7
Chloride 108 H
Carbon Dioxide 28
BUN 21 H
Creatinine 0.9
Glucose 123 H
Calcium 8.7
Total Bilirubin 0.9
AST 76 H
ALT 18
Alkaline Phosphatase 86
Vital Signs:
Vital Signs
Temp Pulse Resp BP Pulse Ox
98.6 F 73 18 138/75 93
01/12/25 07:23 01/12/25 07:23 01/12/25 07:23 01/12/25 07:23 01/12/25 07:23
I&O
01/11/25 01/12/25 01/13/25
06:59 06:59 06:59
Intake Total 700 / 700 1440 / 1440
Output Total 1545 / 1545 1200 / 1200 300 / 300
Balance -845 / -845 240 / 240 -300 / -300
Review of Systems
-
History Source: Patient and Coordinated Provider (discussed with ARELY Goodwin)
Constitutional: Denies Fever
EENT: Reports No Symptoms Reported
Respiratory: Reports No Symptoms
Cardiac: Reports No Symptoms
Abdomen/GI: Reports No Symptoms
Musculoskeletal: Reports Joint Pain
Physical Exam
-
General: Well Developed, Well Nourished and No Apparent Distress
HEENT: Normocephalic and Atraumatic
Respiratory: Clear to Auscultation; Negative Wheezes, Rales or Rhonchi
Cardiac: Regular Rhythm and S1/S2
GI: Soft, Nontender, Nondistended and Normal Bowel Sounds
Musculoskeletal: No Clubbing, No Cyanosis, No Edema and Other (post op left hip)
Skin: Warm and Dry
Neuro: Awake, Alert and Oriented; Negative No Motor Deficits (left hemiparesis post CVA, gait not tested)
--- NOTE | 2025-01-12 12:40 | PN.CDI ---
CDI
- -
CDI:
Physician Documentation Request
Admit Date: 01/08/25 22:27
Dear Doctor Presley,
Clinical Indicators:
Patient admitted with left hip fracture; s/p Left hip hemiarthroplasty 01/09.
01/08 ED report, 'He went to sit on a chair and missed the chair and fell on his left side.'
01/09 Operative Report,'He did have osteoporosis and this was a pathologic fracture secondary to osteoporosis.'
01/12 PN, 'Mechanical fall with traumatic left femoral neck fracture'
Due to potentially conflicting documentation, please clarify the etiology the left hip fracture:
Multifactorial, due to trauma and osteoporosis
Pathologic due to osteoporosis only
Traumatic only
Other
Use of terms such as suspected, likely, concern for, or probable (associated with a specific diagnosis that is being evaluated, monitored, or treated as if it exists) are acceptable and can be coded in the inpatient setting, when documented at the
time of discharge.
Thank you,
FAUSTINA Britt RN
CDI Specialist
available via tiger text
Please use your independent medical judgment in providing your response.
--- NOTE | 2025-01-12 13:04 | PN.CDI ---
CDI
- -
CDI:
Physician Documentation Request
Admit Date: 01/08/25 22:27
Dear Doctor Presley,
Clinical Indicators:
Patient admitted with left hip fracture; s/p Left hip hemiarthroplasty 01/09.
01/09, 01/10 IVF: Normosol @ 100ml/hr
Hgb/Hct trend:
01/08/25 01/10/25 01/12/25
19:35 03:38 06:40
Hgb 15.3 14.5 11.6 L
Hct 44.4 42.1 33.6 L
Based on the above, could you clarify in the progress notes, the appropriate diagnosis, if significant, that supports the above abnormalities and additional evaluation, monitoring and/or treatment rendered:
Anemia, multifactorial due to acute blood loss and hemodilution
Anemia, due to acute blood loss
Anemia due to hemodilution only
Other, please specify
Use of terms such as suspected, likely, concern for, or probable (associated with a specific diagnosis that is being evaluated, monitored, or treated as if it exists) are acceptable and can be coded in the inpatient setting, when documented at the
time of discharge.
Thank you,
Nettie Cole RN
CDI Specialist
available via tiger text
Please use your independent medical judgment in providing your response.
--- NOTE | 2025-01-12 14:10 | CM ---
Addendum entered by Tess Kelly RN 01/12/25 14:43:
Justine faxed acute rehab authorization to [employer].
Original Note:
JUSTINE reviewed medical records. [facility] will most likely accept. JUSTINE is awaiting final acceptance. JUSTINE will further pend [employer] authorization once [facility] has accepted.
[2025-01-12] MEDS: MILK OF MAGNESIA 30 ML PO (14:39)
[2025-01-12 15:23] VITALS: BP 134/80
[2025-01-12] MEDS: LIPITOR 10 MG PO (17:26)
[2025-01-12] MEDS: SENOKOT PO (20:56)
[2025-01-12] MEDS: VITAMIN D3 (cholecalciferol) 25 MCG PO (21:03)
[2025-01-12] MEDS: BENADRYL 50 MG PO (21:03)
[2025-01-12] MEDS: FLOMAX 0.4 MG PO (21:03)
[2025-01-12 23:00] VITALS: BP 164/80
[2025-01-13 07:50] VITALS: BP 142/71
--- NOTE | 2025-01-13 08:35 | CM ---
Addendum entered by Tess Kelly RN 01/13/25 16:54:
CM updated patient's daughter. CM discussed possible SNF options. Daughter stated that if [employer] declines, then they would be agreeable to SNF at [facility] or [facility].
CM will continue to follow for needs.
Addendum entered by Tess Kelly RN 01/13/25 15:58:
JUSTINE called [employer] precertification to confirm authorization reference number. CM resent clinical.
Reference Number
[id number]
Original Note:
JUSTINE emailed [employer] RN reviewer with request for update on acute rehab authorization.
[2025-01-13] MEDS: VIBRAMYCIN 100 MG PO (08:41)
[2025-01-13] MEDS: MYCELEX TROCHE 10 MG PO ×5 (08:41→21:11)
[2025-01-13] MEDS: DECADRON 1 MG PO ×3 (08:42→21:11)
[2025-01-13] MEDS: VITAMIN B1 100 MG PO ×2 (08:42→21:10)
[2025-01-13] MEDS: FOLVITE 1 MG PO (08:42)
[2025-01-13] MEDS: MIRALAX 17 GRAMS PO (08:42)
[2025-01-13] MEDS: COLACE 100 MG PO ×2 (08:42→21:10)
[2025-01-13] MEDS: ASPIRIN 325 MG PO (08:42)
[2025-01-13] MEDS: NON-FORMULARY ITEM 40 MG PO (08:43)
[2025-01-13] MEDS: OSCAL CAL 500 500 MG PO (08:43)
[2025-01-13] MEDS: SENOKOT 8.6 MG PO ×2 (08:43)
[2025-01-13 11:53] VITALS: BP 125/74; BP 151/80; PULSE 80; O2SAT 97
--- NOTE | 2025-01-13 12:06 | CON.MD ---
Consultation - Medical
-
Date of Consult:�01/13/2025
Referring Provider:�Dr. Bryson Sherwood
Chief Complaint:�Left femur fracture
�
History of Present Illness:�89-year-old male with PMH (as below) presented to [facility] on 01/08/2025 with left hip pain after falling while missing a chair while he was attempting to sit. He had a shortened left leg and found to have a
left femoral neck fracture in the emergency department. [place] to be a pathologic fracture secondary to osteoporosis. On 01/09/2025 he had a left hip hemiarthroplasty by Dr. Musa Parmar. Weightbearing as tolerated bilateral lower extremities with
AFO on the left lower extremity. Left total hip precautions for 6 weeks. Noted with leukocytosis thought reactive. Noted with postoperative anemia stable 11.6.
�
Past Medical History:�CVA with left hemiparesis, GERD, HTN, HLD, ANTIONE on BiPAP, gout, alcohol abuse, mucous membrane pemphigoid of the mouth
Procedure History:�Tonsillectomy
Family History:�mother cva age 63
�
Social History:�
Functional Level Premorbidly:�Independent with all activities�
Functional Level Currently:�Min assist transfer, min assist ambulating 8 feet x 1 and then 20 feet x 2 with rolling walker. Mod assist lower extremity self-care, min assist bed mobility. PT and OT recommending acute inpatient rehabilitation.
�
Tobacco:�Denies�
Alcohol:�Daily 375 mL bottle wine
Drug use:�Denies�
�
Lives with:� Moriah
24-hour assistance available:�Yes
Number of floors:�1
# steps to enter:�1
Driving:�Has license but decided not to drive anymore after stroke
Occupation:�Retired
�
�
Allergies:�
Allergy/AdvReac Type Severity Reaction Status Date / Time
No Known Allergies Allergy Verified 01/08/25 19:01
�
Review of Systems:�
Constitutional: (x) Normal _
Eye: (x) Normal _
Ear/Nose/Throat: (x) Normal _
Respiratory: (x) Normal _
Cardiovascular: (x) Normal _
Gastrointestinal: (x) Normal _
Genitourinary: (x) Normal _
Musculoskeletal: (x) abNormal _left hip pain better since surgery
Integumentary: (x) Normal _
Neurologic: (x) abNormal _left-sided weakness as a result of prior stroke
Psychiatric: (x) Normal _
Endocrine: (x) Normal _
Hematologic/Lymphatic: (x) Normal _
Allergic/Immunologic: (x) Normal _
�
Medications:�
Active Current Visit Medication List
Category Date Time Status
0.9% Sodium Chloride [Nss (Preservative Free)] Med 01/08/25 23:24 Active
See Protocol IV PRN PRN
Acetaminophen [Tylenol] Med 01/08/25 23:24 Active
650 mg PO Q4HPRN PRN
Allopurinol [Zyloprim] Med 01/08/25 23:24 Active
100 mg PO DAILYPRN PRN
Aspirin Med 01/09/25 18:00 Active
325 mg PO DAILY
Atorvastatin [Lipitor] Med 01/09/25 18:00 Active
10 mg PO QPM
Bisacodyl [Dulcolax] Med 01/08/25 23:24 Active
10 mg RECTAL [id number] PRN
Calcium Carbonate [Oscal Ar 500] Med 01/09/25 08:00 Active
500 mg PO DAILY
Cholecalciferol (Vitamin D3) [VITAMIN D3 ( Med 01/08/25 23:24 Active
cholecalciferol)]
25 mcg PO HS
Clotrimazole [Mycelex Fannie] Med 01/08/25 23:24 Active
10 mg PO 5/D
Cyclobenzaprine HCl [Flexeril] Med 01/08/25 23:24 Active
5 mg PO TIDPRN PRN
Dexamethasone [Decadron] Med 01/09/25 16:00 Active
1 mg PO TID
Diphenhydramine [Benadryl] Med 01/08/25 23:24 Active
50 mg PO HS
Docusate Sodium [Colace] Med 01/09/25 20:00 Active
100 mg PO BID
Doxycycline [Vibramycin] Med 01/09/25 08:00 Active
100 mg PO DAILY
FOLic ACID [Folvite] Med 01/09/25 08:00 Active
1 mg PO DAILY
FOLic ACID [Folvite] 1 mg Med 01/08/25 23:24 Active
0.9% Sodium Chloride 50 ml [Nss] 50 ml
IV DAILYPRN
Flush (0.9% Sodium Chloride) [Flush (Nss)] Med 01/08/25 22:00 Active
See Dose Instructions IV PER PROTOCOL
HYDROmorphone [Dilaudid] Med 01/08/25 23:24 Active
0.5 mg IV Q4HPRN PRN
Lorazepam [Ativan] Med 01/08/25 23:24 Active
1 mg IV Q1HPRN PRN
Lorazepam [Ativan] Med 01/08/25 23:24 Active
1 mg PO Q2HPRN PRN
Lorazepam [Ativan] Med 01/08/25 23:24 Active
2 mg IV Q1HPRN PRN
Mag Hydrox/Al Hydrox/Simeth [Maalox] Med 01/09/25 11:30 Active
30 ml PO Q4HPRN PRN
Magnesium Hydroxide [Milk of Magnesia] Med 01/12/25 14:21 Active
30 ml PO QIDPRN PRN
Nexium Med 01/11/25 12:00 Active
See Dose Instructions PO DAILY
Ondansetron Injectable [Zofran] Med 01/08/25 23:24 Active
4 mg IV Q6HPRN PRN
Oxycodone [Roxicodone] Med 01/08/25 23:24 Active
5 mg PO Q4HPRN PRN
Polyethylene Glycol Powder [Miralax] Med 01/10/25 10:15 Active
17 grams PO DAILY
Sennosides [Senokot] Med 01/10/25 11:00 Active
8.6 mg PO BID
Tamsulosin [Flomax] Med 01/10/25 22:00 Active
0.4 mg PO HS
Thiamine HCl [Vitamin B1] Med 01/12/25 08:00 Active
100 mg PO BID
�
Vitals:�
Temp Pulse Resp BP Pulse Ox
98.2 F 76 18 142/71 94
01/13/25 07:50 01/13/25 07:50 01/13/25 07:50 01/13/25 07:50 01/13/25 08:40
Height 5 ft 7 in
Actual Weight 83.824 kg
Body Mass Index (BMI) 29.0
�
Physical Exam:�
General Appearance/Observation: Well-developed, well-nourished male in no apparent distress.�
Pain/Comfort Assessment: Mild left hip
Mood/Affect: Appropriate�
�
Integumentary/Operative Site:�Left hip Aquacel with moderate serosanguineous drainage
�
Eyes: Conjunctiva/Lids: normal��� Pupils: pupils equal round and reactive to light and Accommodation
Ears/Nose/Throat: oral mucosa moist, throat clear.������������ Lips/Teeth/Gums: normal
Cardiovascular: Heart: regular, no murmur�
Pulses: dorsalis pedis 2+ bilaterally�
Respiratory: Respiratory Effort/Chest Expansion: normal������ Auscultation: Clear to auscultation bilaterally
Gastrointestinal: abdomen not tender, no distension, normal abdominal bowel sounds
Genitourinary: No Damian�
Extremities:�Edema: Mild left lower extremity�cyanosis: Has slightly cooler left upper extremity than the right which she does eat with slight to bluish-red hue. Trophic�changes: None
- Has left double metal upright AFO.
Neurology Exam:
Orientation: Alert, Oriented to self, Time, Place�
Memory: Intact for recent medical concerns
Comprehension: Intact
Two step command: Intact
Cranial Nerves:
�� CNII:�Pupillary light reflex: Intact���Visual Field: Intact
�� CN III, IV, : Extraocular muscles: Intact�
�� CN V:�Facial Sensation�at�Forehead: Intact,�Maxilla: Intact,�Mandible: Intact
�� CN VII:�Facial movement: Symmetric
�� CN VIII:�Hearing: Normal
�� CN IX/X:�Speech & swallow: Normal,�Position of Uvula: Midline
�� CN XI:�Shoulder shrug: Symmetric
�� CN XII:�Tongue protrusion: Midline
Sensory:
�� Light touch: Intact in bilateral upper and lower extremities
�
Reflexes:
�� Babinski: Down going bilaterally
�� Clonus: None
�� Brianne: Negative bilaterally�
Cerebellar: Dysmetria/Ataxia: None�
Musculoskeletal:Motor: (Manual muscle scale 0-5)�
Muscle SA EF WE EE FF FA HF KE DF EHL PF
Right� 5 5 5 5 5 5 5 5 5 5
Left 5 5 5 4+ 5 5 2 2 2+ 3
�
Tone: Normal in all extremities�
Range of Motion: Passively within normal limits in all extremities�
�
Lab Results
Laboratory Data
01/12/25 06:40
01/12/25 06:40
PT 14.4 Sec (11.4-14.6) 01/09/25 00:07
INR 1.09 01/09/25 00:07
APTT 28.2 Sec (23.4-35.0) 01/08/25 19:35
Total Bilirubin 0.9 mg/dl (0.2-1.3) 01/12/25 06:40
GGT 31 U/L (15-73) 01/09/25 00:07
AST 76 U/L (17-59) H 01/12/25 06:40
ALT 18 U/L (0-50) 01/12/25 06:40
Alkaline Phosphatase 86 U/L (38-126) 01/12/25 06:40
Total Protein 5.0 g/dl (6.3-8.2) L 01/12/25 06:40
Albumin 2.7 g/dl (3.5-5.0) L 01/12/25 06:40
�
Diagnostic Results:�as per HPI�
�
Assessment
89 y/o M PMH (CVA with left hemiparesis, GERD, HTN, HLD, ANTIONE on BiPAP, gout, alcohol abuse, mucous membrane pemphigoid of the mouth) with 01/08/2025 left femoral neck fracture i s/p 01/09/2025left hip hemiarthroplasty by Dr. Musa Parmar.
Weightbearing as tolerated bilateral lower extremities with AFO on the left lower extremity. Left total hip precautions for 6 weeks. Noted with leukocytosis thought reactive and postoperative anemia resulting in ADL and ambulatory dysfunction.
Plan�
PM&R�PT/OT to increase independence with ADLs, improve balance, coordination, endurance, strength, mobility, community reintegration, decreased burden of care on others and family education.�
�
Left hip fracture: Monitor incision, pain control, hip precautions/incision care per orthopedics,�may shower, dressings can be removed postop day 7, polly removed postop day 14.
CVA with left hemiparesis history: Secondary prophylaxis with aspirin, statin, and blood pressure control.�
Left hemiparesis: Has left ankle-foot orthosis
-Maintain full range of motion.�
-Flexeril for spasms and Tylenol or oxycodone for pain
- Has spasms in the left leg during the day but worse at night preventing him from sleeping. He tries taking Benadryl at home and during the day but it makes him to doubt drowsy during the day.
--Suggest baclofen starting at 5 mg at night and increasing to 10 mg at night if tolerated and needed. Suggest stopping Flexeril. Would avoid taking Benadryl for sleep. Side effect of drowsiness might also benefit with baclofen. Could also
consider low-dose trazodone.
HTN: Currently not on medication, monitor for low blood pressure on Flomax.
HLD: Statin�
Gout: Allopurinol as needed
ANTIONE: BiPAP use.�
Postoperative anemia: Continue to monitor.�
Osteoporosis: Calcium with vitamin D
Oral mucous membrane pemphigoid: Clotrimazole fannie, doxycycline
Alcohol use history: Had Ativan protocol ordered. Folic acid and thiamine supplementation.
Psych: Monitor mood, medications as needed.�
Skin: monitor for pressure sores/rashes/lesions.�
Bowel: MiraLAX, Colace and Senna, PRN bisacodyl.�
Bladder: BPH on tamsulosin 0.4 mg at bedtime time void, PVRs, PRN straight cath.�
GI Prophylaxis: Esomeprazole
DVT Prophylaxis: Mechanical and full dose aspirin
Pulmonary: Incentive spirometry�
Safety: Continue to reinforce assistance with all transfers.�
Code Status:� Full code
Dispo�(date/plan/equipment needs): Home with family care.� Social history reviewed.�
Functional and Medical Goals:�Modified Independent with ADL�s, ambulation, transfers�
Discharge Destination:�Acute inpatient rehabilitation�
Summary of recommendations:
Left hip fracture: Monitor incision, pain control, hip precautions/incision care per orthopedics,�may shower, dressings can be removed postop day 7, polly removed postop day 14.
Left hemiparesis: Has left ankle-foot orthosis
- Has spasms in the left leg during the day but worse at night preventing him from sleeping. He tries taking Benadryl at home and during the day but it makes him to doubt drowsy during the day.
--Suggest baclofen starting at 5 mg at night and increasing to 10 mg at night if tolerated and needed. Suggest stopping Flexeril. Would avoid taking Benadryl for sleep. Side effect of drowsiness might also benefit with baclofen. Could also
consider low-dose trazodone for sleep.
�
Thank you for allowing me to care for your patient. Please contact me with any questions or concerns.
[2025-01-13 15:30] VITALS: BP 135/73
[2025-01-13 15:53] VITALS: BP 128/70; PULSE 87
--- NOTE | 2025-01-13 15:56 | DOWNTIME ---
There was a appsplit Client [employer] Downtime on 01/13/2025 from 1230 to 01/13/2025 at 1550. Downtime documentation of patient's care, including medication administrations, has been reconciled in the electronic record per guidelines. Refer to the
patient's paper chart under the miscellaneous tab to see printed paper medication records and downtime forms.
--- NOTE | 2025-01-13 16:35 | W.PN.HOSP.TC ---
Today's Communication/Plan
-
await insurance prior auth
recheck labs in AM
Assessment / Plan
Assessment / Plan
89-year-old male with fall and left hip pain he was in a restaurant and when he sat down he missed the chair and fell on the left side injuring the hip and thigh.
#Mechanical fall with traumatic left femoral neck fracture
Status post left hip hemiarthroplasty on 01/09/[address] Parmar
Weight bear as tolerated
PT OT
Will consult Physiatry, await input as to whether ?Marcelo candidate. PT recommends acute rehab, [facility] accepted to rehab, just checked with ARELY Quiñonez and have not yet received prior auth from [employer], insurance
# Slightly elevated AST probably secondary to alcohol
Acute Fracture was Multifactorial, due to trauma and osteoporosis
Acute Anemia, due to acute blood loss from trauma and surgical intervention
# Leukocytosis-likely reactive
Better
# Hyperglycemia-hemoglobin A1c 5.8%
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
Unclear why he is not on antiplatelets as outpatient. Currently on aspirin. Should be on 81 mg of aspirin once he completes the DVT prophylaxis dose
# Mucous membrane pemphigoid continue clotrimazole atrocious, Dexamethasone 1 mg/5 mL swish and spit TID ( Home dose) , ( Pt not compliant per ) and doxycycline 100 mg daily
# Hyperlipidemia-continue statin
# Gout-continue allopurinol
# Sleep apnea-continue BiPAP
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
Need to cut back
MSAS protocol and thiamine
Has not demonstrated evidence of withdrawal
# GERD- Pepcid, patient states that he also takes Nexium as outpatient, order placed
# DVT prophylaxis-SCDs, Aspirin
# Full code
Discussed with nursing at bedside
Met with in [place] and updated
Anticipated Discharge: Within 24 hours
Subjective/Interval History
-
Date of Service: January 13, 2025
Anxiously awaiting transfer to [facility]
Objective Data
-
Vital Signs:
Vital Signs
Temp Pulse Resp BP Pulse Ox
98.2 F 76 18 142/71 94
01/13/25 07:50 01/13/25 07:50 01/13/25 07:50 01/13/25 07:50 01/13/25 08:40
I&O
01/12/25 01/13/25 01/14/25
06:59 06:59 06:59
Intake Total 1440 / 1440 1080 / 1080 240 / 240
Output Total 1200 / 1200 1300 / 1300 220 / 220
Balance 240 / 240 -220 / -220 / 20
Review of Systems
-
History Source: Patient and Coordinated Provider (discussed with ARELY Quiñonze)
Constitutional: Denies Fever
EENT: Reports No Symptoms Reported
Respiratory: Reports No Symptoms
Cardiac: Reports No Symptoms
Abdomen/GI: Reports No Symptoms
Musculoskeletal: Reports Joint Pain
Physical Exam
-
General: Well Developed, Well Nourished and No Apparent Distress
HEENT: Normocephalic and Atraumatic
Respiratory: Clear to Auscultation; Negative Wheezes, Rales or Rhonchi
Cardiac: Regular Rhythm and S1/S2
GI: Soft, Nontender, Nondistended and Normal Bowel Sounds
Musculoskeletal: No Clubbing, No Cyanosis, No Edema and Other (post op left hip)
Skin: Warm and Dry
Neuro: Awake, Alert and Oriented; Negative No Motor Deficits (left hemiparesis post CVA, gait not tested)
[2025-01-13] MEDS: LIPITOR 10 MG PO (17:55)
[2025-01-13] MEDS: BENADRYL 50 MG PO (21:11)
[2025-01-13] MEDS: FLOMAX 0.4 MG PO (21:11)
[2025-01-13] MEDS: VITAMIN D3 (cholecalciferol) 25 MCG PO (21:11)
[2025-01-13 23:15] VITALS: BP 130/75
[2025-01-13] MEDS: FLEXERIL 5 MG PO (23:37)
[2025-01-14 07:09] VITALS: BP 172/84
[2025-01-14 08:32] LABS: % Basophils 0.4 % (0-2); % Eosinophils 2.1 % (0-6); % Immature Granulocytes 0.4 % (0-0.5); % Lymphocytes 18.4 % (20.5-51.1); % Monocytes 12.2 % (1.7-9.3); % Neutrophils 66.5 % (42.2-75.2); Absolute Eosinophils 0.2 10^3/uL (0-0.7); Absolute Lymphocytes 1.3 10^3/uL (1.2-3.4); Absolute Monocytes 0.9 10^3/uL (0.1-0.6); Absolute Neutrophils 4.8 10^3/uL (1.4-6.5); Hematocrit 35.1 % (39.0-52.0); Hemoglobin 12.3 g/dL (13.0-18.0); Mean Corpuscular Hgb 31.1 pg (27.0-31.0); Mean Corpuscular Volume 88.6 fL (80.0-94.0); Mean Platelet Volume 9.6 fL (7.4-10.4); Nucleated Red Blood Cells % 0 % (-); Platelet Count 213 10^3/uL (130-400); Red Blood Cell Count 3.96 10^6/uL (4.70-6.10); Red Cell Dist. Width 14.9 % (11.5-14.5); White Blood Cell Count 7.2 10^3/uL (4.8-10.8)
--- NOTE | 2025-01-14 09:25 | CM ---
Addendum entered by Jessy Shea 01/14/25 15:46:
CM left a voice mail; instructed her to bring BiPap to the hospital tomorrow to go with patient to [facility]; or deliver it to [facility] directly
Attending notified to include BiPAP in DC orders
Addendum entered by Jessygita Shea 01/14/25 12:46:
IMM benefit explained to patient and at bedside; form signed @ 1240
Addendum entered by Jessy Shea 01/14/25 12:33:
[facility]
Report # [id number]

Addendum entered by Jessy [facility] 01/14/25 11:40:
Attending notified of Authorization approval and will discharge patient tomorrow
Addendum entered by Jessy [facility] 01/14/25 11:34:
CM spoke with patient's , informed her that authorization for acute rehab denied
agreeable with discharge to SNF; 1st site preference is [facility]; facility will have a bed tomorrow
Referral for [facility] sent via [employer]; authorization approved; [facility] notified of approval
Authorization Certification # [id number]
Start 01-15; last covered day and review 01/21/2025
[employer] fax # [phone]
Addendum entered by Jessy Shea 01/14/25 10:45:
Per Tess FLETCHER [employer] denied Auth for Acute Rehab; Attending notified
SNF referrals accepted by [facility] pending bed availability when stable for discharge; and Auth approval
Will discuss with Attending and follow up with patient/family
Original Note:
JUSTINE called Sandeep for insurance authorization status
Sandeep reported that clinical information was received and in review; no decision at this time
Plan: discharge to acute rehab facility pending authorization approval
[2025-01-14] MEDS: COLACE 100 MG PO ×2 (09:43→20:05)
[2025-01-14] MEDS: ASPIRIN 325 MG PO (09:43)
[2025-01-14] MEDS: DECADRON 1 MG PO ×3 (09:43→22:24)
[2025-01-14] MEDS: FOLVITE 1 MG PO (09:44)
[2025-01-14] MEDS: VIBRAMYCIN 100 MG PO (09:44)
[2025-01-14] MEDS: SENOKOT 8.6 MG PO (09:44)
[2025-01-14] MEDS: NON-FORMULARY ITEM 40 MG PO (09:44)
[2025-01-14] MEDS: VITAMIN B1 100 MG PO ×2 (09:44→20:06)
[2025-01-14] MEDS: MIRALAX 17 GRAMS PO (09:44)
[2025-01-14] MEDS: OSCAL CAL 500 500 MG PO (09:44)
[2025-01-14] MEDS: MYCELEX TROCHE 10 MG PO ×3 (09:44→22:24)
[2025-01-14] MEDS: FLEXERIL 5 MG PO (09:45)
[2025-01-14 09:48] LABS: ALT (SGPT) 32 U/L (0-50); AST (SGOT) 106 U/L (17-59); Alkaline Phosphatase 92 U/L (38-126); Blood Urea Nitrogen 24 mg/dl (9-20); Calcium 8.6 mg/dl (8.4-10.2); Carbon Dioxide 27 mmol/L (22-30); Chloride 109 mmol/L (98-107); Estimated Creatinine Clearance 60 ml/min; Glucose 95 mg/dl (70-99); Potassium 4.1 mmol/L (3.5-5.1); Sodium 138 mmol/L (135-145); Total Bilirubin 1.2 mg/dl (0.2-1.3); Total Protein 5.5 g/dl (6.3-8.2); eGFR > 60.00
--- NOTE | 2025-01-14 11:23 | W.PN.HOSP.TC ---
Today's Communication/Plan
-
await transfer to rehab
post op anemia is better
Albumin is better
Assessment / Plan
Assessment / Plan
89-year-old male with fall and left hip pain he was in a restaurant and when he sat down he missed the chair and fell on the left side injuring the hip and thigh.
#Mechanical fall with traumatic left femoral neck fracture
Status post left hip hemiarthroplasty on 01/09/[address] Parmar
Weight bear as tolerated
PT OT
Will consult Physiatry, await input as to whether ?Marcelo candidate. PT recommends acute rehab, [facility] accepted to rehab, just checked with ARELY Quiñonez and have not yet received prior auth from [employer], insurance
# Slightly elevated AST probably secondary to alcohol
Acute Fracture was Multifactorial, due to trauma and osteoporosis
Acute Anemia, due to acute blood loss from trauma and surgical intervention
Anemia better, Hgb 11.6-->12.3
# Leukocytosis-likely reactive
resolved
# Hyperglycemia-hemoglobin A1c 5.8%
better glu 95
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
Unclear why he is not on antiplatelets as outpatient. Currently on aspirin. Should be on 81 mg of aspirin once he completes the DVT prophylaxis dose
# Mucous membrane pemphigoid continue clotrimazole atrocious, Dexamethasone 1 mg/5 mL swish and spit TID ( Home dose) , ( Pt not compliant per ) and doxycycline 100 mg daily
# Hyperlipidemia-continue statin
# Gout-continue allopurinol
# Sleep apnea-continue BiPAP
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
Need to cut back
MSAS protocol and thiamine
Has not demonstrated evidence of withdrawal
# GERD- Pepcid, patient states that he also takes Nexium as outpatient, order placed
# DVT prophylaxis-SCDs, Aspirin
# Full code
Discussed with nursing at bedside
just contacted by nursing, apparently [facility] turned down Acute Rehab, will need to go to SNF. Discussed with JUSTINE, she will be reaching out to to discuss
Anticipated Discharge: 24 - 48 hours
Subjective/Interval History
-
Date of Service: January 14, 2025
Awaiting transfer to rehab
Objective Data
-
Labs:
Laboratory Results
01/14/25
07:42
WBC 7.2
Hgb 12.3 L
Hct 35.1 L
Plt Count 213
Sodium 138
Potassium 4.1
Chloride 109 H
Carbon Dioxide 27
BUN 24 H
Creatinine 0.8
Glucose 95
Calcium 8.6
Total Bilirubin 1.2
AST 106 H
ALT 32
Alkaline Phosphatase 92
Vital Signs:
Vital Signs
Temp Pulse Resp BP Pulse Ox
97.8 F 85 16 172/84 96
01/14/25 07:09 01/14/25 07:09 01/14/25 07:09 01/14/25 07:09 01/14/25 07:09
I&O
01/13/25 01/14/25 01/15/25
06:59 06:59 06:59
Intake Total 1080 / 1080 995 / 995
Output Total 1300 / 1300 920 / 920
Balance -220 / -220 75 / 75
Review of Systems
-
History Source: Patient and Coordinated Provider (discussed with ARELY Keys)
Constitutional: Denies Fever
EENT: Reports No Symptoms Reported
Respiratory: Reports No Symptoms
Cardiac: Reports No Symptoms
Abdomen/GI: Reports No Symptoms
Musculoskeletal: Reports Joint Pain
Physical Exam
-
General: Well Developed, Well Nourished and No Apparent Distress
HEENT: Normocephalic and Atraumatic
Respiratory: Clear to Auscultation; Negative Wheezes, Rales or Rhonchi
Cardiac: Regular Rhythm and S1/S2
GI: Soft, Nontender, Nondistended and Normal Bowel Sounds
Musculoskeletal: No Clubbing, No Cyanosis, No Edema and Other (post op left hip)
Skin: Warm and Dry
Neuro: Awake, Alert and Oriented; Negative No Motor Deficits (left hemiparesis post CVA, gait not tested)
[2025-01-14 12:30] VITALS: BP 134/79
[2025-01-14 15:25] VITALS: BP 143/77
[2025-01-14 16:42] VITALS: BP 143/77; PULSE 95
[2025-01-14] MEDS: MYCELEX TROCHE PO ×2 (17:10→20:05)
[2025-01-14] MEDS: LIPITOR 10 MG PO (17:15)
[2025-01-14] MEDS: SENOKOT PO (20:06)
[2025-01-14] MEDS: BENADRYL 50 MG PO (22:23)
[2025-01-14] MEDS: FLOMAX 0.4 MG PO (22:24)
[2025-01-14] MEDS: VITAMIN D3 (cholecalciferol) 25 MCG PO (22:24)
[2025-01-14 23:14] VITALS: BP 133/75
[2025-01-15 07:15] VITALS: BP 142/77
--- NOTE | 2025-01-15 08:33 | CM ---
CM reviewed medical records. Plan for discharge to [facility].
[facility]
Report # [phone]
[2025-01-15] MEDS: VITAMIN B1 100 MG PO (08:52)
[2025-01-15] MEDS: OSCAL CAL 500 500 MG PO (08:52)
[2025-01-15] MEDS: ASPIRIN 325 MG PO (08:52)
[2025-01-15] MEDS: MYCELEX TROCHE 10 MG PO ×3 (08:52→15:00)
[2025-01-15] MEDS: COLACE 100 MG PO (08:52)
[2025-01-15] MEDS: NON-FORMULARY ITEM 40 MG PO (08:53)
[2025-01-15] MEDS: MIRALAX 17 GRAMS PO (08:53)
[2025-01-15] MEDS: VIBRAMYCIN 100 MG PO (08:53)
[2025-01-15] MEDS: FOLVITE 1 MG PO (08:53)
[2025-01-15] MEDS: SENOKOT 8.6 MG PO (08:53)
[2025-01-15] MEDS: DECADRON 1 MG PO ×2 (08:53→15:53)
--- NOTE | 2025-01-15 11:20 | W.PN.HOSP.TC ---
Today's Communication/Plan
-
dc to SNF now
Assessment / Plan
Assessment / Plan
89-year-old male with fall and left hip pain he was in a restaurant and when he sat down he missed the chair and fell on the left side injuring the hip and thigh.
#Mechanical fall with traumatic left femoral neck fracture
Status post left hip hemiarthroplasty on 01/09/[address] Parmar
Weight bear as tolerated
PT OT
Will consult Physiatry, await input as to whether ?Marcelo candidate. PT recommends acute rehab, [facility] accepted to rehab, just checked with Olamide RN and have not yet received prior auth from [employer], insurance
# Slightly elevated AST probably secondary to alcohol
Acute Fracture was Multifactorial, due to trauma and osteoporosis
Acute Anemia, due to acute blood loss from trauma and surgical intervention
Anemia better, Hgb 11.6-->12.3
# Leukocytosis-likely reactive
resolved
# Hyperglycemia-hemoglobin A1c 5.8%
better glu 95
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
Unclear why he is not on antiplatelets as outpatient. Currently on aspirin. Should be on 81 mg of aspirin once he completes the DVT prophylaxis dose
# Mucous membrane pemphigoid continue clotrimazole atrocious, Dexamethasone 1 mg/5 mL swish and spit TID ( Home dose) , ( Pt not compliant per ) and doxycycline 100 mg daily
# Hyperlipidemia-continue statin
# Gout-continue allopurinol
# Sleep apnea-continue BiPAP
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
Need to cut back
MSAS protocol and thiamine
Has not demonstrated evidence of withdrawal
# GERD- Pepcid, patient states that he also takes Nexium as outpatient, order placed
# DVT prophylaxis-SCDs, Aspirin
# Full code
Discussed with nursing at bedside
Will be going to [facility] in near future
see dictated note
More than 30 minutes spent in discharge including
Final examination of the patient
Summarizing hospital stay
Instructions for continuing care to all relevant caregivers
Preparation of discharge records, prescriptions, and referral forms
Total time spent (in minutes): 45
Anticipated Discharge: Today
Subjective/Interval History
-
Date of Service: January 15, 2025
Awake, alert
Objective Data
-
Vital Signs:
Vital Signs
Temp Pulse Resp BP Pulse Ox
97.9 F 78 18 142/77 94
01/15/25 07:15 01/15/25 07:15 01/15/25 07:15 01/15/25 07:15 01/15/25 07:15
I&O
01/14/25 01/15/25 01/16/25
06:59 06:59 06:59
Intake Total 995 / 995 1380 / 1380 120 / 120
Output Total 920 / 920 1650 / 1650
Balance 75 / 75 -270 / -270 120 / 120
Review of Systems
-
History Source: Patient and Coordinated Provider (discussed with ARELY Goodwin)
Constitutional: Denies Fever
EENT: Reports No Symptoms Reported
Respiratory: Reports No Symptoms
Cardiac: Reports No Symptoms
Abdomen/GI: Reports No Symptoms
Musculoskeletal: Reports Joint Pain
Physical Exam
-
General: Well Developed, Well Nourished and No Apparent Distress
HEENT: Normocephalic and Atraumatic
Respiratory: Clear to Auscultation; Negative Wheezes, Rales or Rhonchi
Cardiac: Regular Rhythm and S1/S2
GI: Soft, Nontender, Nondistended and Normal Bowel Sounds
Musculoskeletal: No Clubbing, No Cyanosis, No Edema and Other (post op left hip)
Skin: Warm and Dry
Neuro: Awake, Alert and Oriented; Negative No Motor Deficits (left hemiparesis post CVA, gait not tested)
--- NOTE | 2025-01-15 15:24 | W.DS.TRANS ---
DC Summary - Relations Specialist
-
Discharge Instructions:
Discharge Diagnosis/Procedures Left Femur fracture
Diet Regular
Activity With assistance,With Walker
Driving Restrictions No driving
Bathing Restrictions OK to Shower
Blood Work CBC, CMP in 1-2 weeks
Wound Care Please check with Dr. Musa Parmar polly out
in 2 weeks
Instructions:
Stand-Alone Forms:
Changes to Home Medications: No
Discharge Medications:
DC Medications w/original date entered in [employer]
calcium carbonate (Calcium 600) 600 mg PO DAILY Supplement 10/31/13
cholecalciferol (vitamin D3) 25 mcg (1,000 unit) capsule 1,000 unit PO HS Supplement 10/31/13
folic acid 400 mcg tablet 0.8 mg PO DAILY Supplement 10/31/13
atorvastatin 10 mg tablet 10 mg PO QPM ##30 11/20/13
trazodone 50 mg tablet 25 mg (1/2 x 50 mg) PO HS #30 tabs 11/20/13
allopurinol 100 mg tablet 100 mg PO DAILY PRN gout 01/08/25
clotrimazole 10 mg fannie 10 mg PO DIRECTED Infection 01/08/25
dexamethasone 0.5 mg/5 mL oral elixir 1 mg PO HS Anti-Inflammatory 01/08/25
diphenhydramine HCl 25 mg capsule (Banophen) 50 mg PO HS Sleep 01/08/25
doxycycline hyclate 100 mg PO DAILY Infection 01/08/25
famotidine 20 mg tablet 20 mg PO HS PRN acid indigestion 01/08/25
Nexium 40 mg PO DAILY #30 tabs 01/15/25
acetaminophen 325 mg tablet 650 mg (2 x 325 mg) PO Q4HPRN PRN mild pain/BURDICK/temp> 100.4F #90 tabs 01/15/25
aspirin 325 mg tablet 325 mg PO DAILY #30 tabs 01/15/25
tamsulosin 0.4 mg capsule 0.4 mg PO HS #30 caps 01/15/25
Home Medication Changes
Pending Results: No
[2025-01-15 15:40] VITALS: BP 140/79
[2025-01-15] MEDS: LIPITOR 10 MG PO (16:14)
[2025-01-15] MEDS: MYCELEX TROCHE PO (17:00)
== END 2025-01-15 17:39 | DRG 522 ==
LOC: 2 SOUTH 22:27
PROVIDERS: Clinical Nurse Specialist Family Health; Physician Assistant; ADMITTING PHYSICIAN Internal Medicine; ATTENDING PHYSICIAN Internal Medicine; CONSULT PHYSICIAN Physical Medicine & Rehabilitation; CONSULT PHYSICIAN Specialist; EMERGENCY PHYSICIAN Emergency Medicine; FAMILY PHYSICIAN Internal Medicine
PROC: 0SRS0J9 Replacement of Left Hip Joint, Femoral Surface with Synthetic Substitute, Cemented, Open Approach (ICD-10-PCS; 2025-01-09)
DX: M80.052A Age-related osteoporosis with current pathological fracture, left femur, initial encounter for fracture (principal); I69.354 Hemiplegia and hemiparesis following cerebral infarction affecting left non-dominant side; D62 Acute posthemorrhagic anemia; L12.1 Cicatricial pemphigoid; F10.10 Alcohol abuse, uncomplicated; E78.00 Pure hypercholesterolemia, unspecified; G47.33 Obstructive sleep apnea (adult) (pediatric); I10 Essential (primary) hypertension; D72.829 Elevated white blood cell count, unspecified; N40.0 Benign prostatic hyperplasia without lower urinary tract symptoms; R73.9 Hyperglycemia, unspecified; K21.9 Gastro-esophageal reflux disease without esophagitis; R74.01 Elevation of levels of liver transaminase levels; M10.9 Gout, unspecified; W07.XXXA Fall from chair, initial encounter; Y93.89 Activity, other specified; Y92.511 Restaurant or cafe as the place of occurrence of the external cause; Z79.82 Long term (current) use of aspirin; Z79.02 Long term (current) use of antithrombotics/antiplatelets; Z82.3 Family history of stroke; Z79.2 Long term (current) use of antibiotics
CPT/HCPCS: 72170; 73502; 73552; 80053; 80306; 80307; 81003; 82010; 82077; 82977; 83036; 83735; 84100; 85025; 85610; 85730; 86850; 86900; 86901; 93005; 96374; 96375; 97110; 97116; 97163; 97167; 97530; 97535; 99285; C1713; C1776

== ENCOUNTER → 2025-01-18 11:06 | Outpatient (REF) | payer OTHER, SELFPAY ==
[2025-01-18 11:59] LABS: Hematocrit 34.9 % (39.0-52.0); Hemoglobin 11.9 g/dL (13.0-18.0); Mean Corp Hgb Conc. 34.1 g/dL (33.0-37.0); Mean Corpuscular Hgb 31.6 pg (27.0-31.0); Mean Corpuscular Volume 92.6 fL (80.0-94.0); Mean Platelet Volume 9.6 fL (7.4-10.4); Platelet Count 270 10^3/uL (130-400); Red Blood Cell Count 3.77 10^6/uL (4.70-6.10); Red Cell Dist. Width 15.1 % (11.5-14.5); White Blood Cell Count 8.2 10^3/uL (4.8-10.8)
[2025-01-18 13:07] LABS: ALT (SGPT) 28 U/L (0-50); AST (SGOT) 68 U/L (17-59); Albumin 2.6 g/dl (3.5-5.0); Alkaline Phosphatase 118 U/L (38-126); Blood Urea Nitrogen 18 mg/dl (9-20); Calcium 8.3 mg/dl (8.4-10.2); Carbon Dioxide 26 mmol/L (22-30); Chloride 112 mmol/L (98-107); Glucose 115 mg/dl (70-99); Magnesium 2.1 mg/dl (1.6-2.3); Potassium 4.1 mmol/L (3.5-5.1); Sodium 140 mmol/L (135-145); Total Bilirubin 0.8 mg/dl (0.2-1.3); Total Protein 4.8 g/dl (6.3-8.2); eGFR > 60.00
== END ==
LOC: OLABWHC 11:06
PROVIDERS: ATTENDING PHYSICIAN Family Medicine
DX: E78.5 Hyperlipidemia, unspecified (principal); S72.002D Fracture of unspecified part of neck of left femur, subsequent encounter for closed fracture with routine healing; I69.354 Hemiplegia and hemiparesis following cerebral infarction affecting left non-dominant side
CPT/HCPCS: 36415; 80053; 83735; 85027

== ENCOUNTER 2025-04-16 14:09 | Outpatient (RCR) | payer OTHER, SELFPAY | END 2025-04-16 23:59 | disposition home or self-care (01) | LOC: RPT 14:09 | PROVIDERS: ATTENDING PHYSICIAN Internal Medicine | DX: Z47.1 Aftercare following joint replacement surgery (principal); S72.002D Fracture of unspecified part of neck of left femur, subsequent encounter for closed fracture with routine healing; M25.552 Pain in left hip; Z73.6 Limitation of activities due to disability; R26.89 Other abnormalities of gait and mobility; M62.81 Muscle weakness (generalized); W19.XXXD Unspecified fall, subsequent encounter; Z96.642 Presence of left artificial hip joint | CPT/HCPCS: 97110; 97112; 97162; 97530 ==

== ENCOUNTER 2025-05-04 13:07 | Outpatient (RCR) | payer OTHER, SELFPAY | END 2025-05-04 23:59 | disposition home or self-care (01) | LOC: RPT 13:07 | PROVIDERS: ATTENDING PHYSICIAN Internal Medicine | DX: Z47.1 Aftercare following joint replacement surgery (principal); S72.002D Fracture of unspecified part of neck of left femur, subsequent encounter for closed fracture with routine healing; S72.002S Fracture of unspecified part of neck of left femur, sequela; M25.552 Pain in left hip; Z73.6 Limitation of activities due to disability; R26.89 Other abnormalities of gait and mobility; M62.81 Muscle weakness (generalized); W19.XXXD Unspecified fall, subsequent encounter; Z96.642 Presence of left artificial hip joint | CPT/HCPCS: 97110; 97112; 97530 ==